=== PATIENT | female | born 1940 | race Caucasian/White ===

== ENCOUNTER → 2016-10-08 | Outpatient (CLI) | payer OTHER ==
[~2016-10-08] MED LIST: ASPCH81X PO; CALCTAB5 PO; CARV6.252 PO; CHOL20007 PO; CYAN500T13 PO; IBUP-1050 PO; LATA0.009 OPB; LIDO5DIS10 TD; METO25TA3 PO; OMEG10007 PO; OMEP40CA PO; POLY335019 PO; SIMV10TA2 PO; TIMO0.2527 OPB; [UNRECOGNIZED DRUG - CODE] TOP
--- NOTE | 2016-10-08 12:58 | MAMMOGRAPHY REPORT ---
BILATERAL DIGITAL SCREENING MAMMOGRAM WITH CAD: 10/08/2016 CLINICAL HISTORY: Routine screening. Patient has no complaints. TECHNIQUE: Current study was also evaluated with a Computer Aided Detection (CAD) system. Bilatera l CC and MLO views were obtained. COMPARISON: Comparison is made to exams dated: 10/08/2015 mammogram, 10/05/2014 mammogram, 09/06/2013 mammogram, 08/16/2012 mammogram, 06/05/2011 mammogram, and 06/04/2010 mammogram - [facility]. BREAST COMPOSITION: There are scattered areas of fibroglandular density in both breasts. FINDINGS: No suspicious masses, calcifications, or areas of architectural distortion are noted in e ither breast. There has been no significant interval change compared to prior exams. Bilateral vitaly gn-appearing calcifications are not significantly changed. IMPRESSION: ACR BI-RADS CATEGORY 2: BENIGN There is no mammographic evidence of malignancy. A 1 year screening mammogram is recommended. The p atient will receive written notification of the results. Approximately 10% of breast cancers are not detected with mammography. A negative mammographic repor t should not delay biopsy if a clinically suggestive mass is present. Lluvia Moody M.D. ah/:10/08/2016 12:02:05 Winter Intern: Orlando BLAKE(R)(M), [facility] letter sent: Normal 1/2 BI-RADS Code: ACR BI-RADS Category 2: Benign
== END | disposition home or self-care (01) ==
LOC: C.MAMM 11:13
PROVIDERS: ATTEND Obstetrics & Gynecology
DX: Z12.31 Encounter for screening mammogram for malignant neoplasm of breast (principal)

== ENCOUNTER → 2016-11-20 | Outpatient (CLI) | payer OTHER ==
[2016-11-20 10:23] LABS: ALT/SGPT 29 U/L (12-78); BLOOD UREA NITROGEN 9 mg/dl (7-18); BUN/CREATININE RATIO 9.3 (10-20); CALCIUM 9.1 mg/dl (8.5-10.1); CARBON DIOXIDE 26 mmol/L (21-32); CHLORIDE 105 mmol/L (98-107); CHOLESTEROL 219 mg/dl (0-200); GLUCOSE 117 mg/dl (70-99); POTASSIUM 4.4 mmol/L (3.5-5.1); SODIUM 137 mmol/L (136-145); TRIGLYCERIDES 117 mg/dl (0-150); URIC ACID 5.6 mg/dl (2.6-7.2); VERY LOW DENSITY LIPOPROT CALC 23 mg/dl
[2016-11-20 10:31] LABS: ALB/GLOB RATIO 0.9 (0.9-2); ALKALINE PHOSPHATASE 57 U/L (45-117); AST/SGOT 17 U/L (15-37); CHOLESTEROL/HDL RATIO 4.7; HDL CHOLESTEROL 47 mg/dl; LDL CHOLESTEROL CALCULATED 149 mg/dl; PHOSPHORUS 2.9 mg/dl (2.5-4.9)
[2016-11-20 10:39] LABS: ESTIMATED AVERAGE GLUCOSE 134 mg/dl; HA1C FLAG Normal (Normal)
[2016-11-20 12:19] LABS: BASO % 0.7 %; BASO ABS # 0.03 K/uL (0-0.2); COMPLETE YES; EOS % 3.7 %; HEMATOCRIT 36.8 % (37-47); IG% 0.2 %; LYMPH % 37.6 %; LYMPH ABS # 1.71 K/uL (1.2-3.4); MEAN CELL VOLUME 91.3 fL (80-100); MEAN CORPUSCULAR HEMOGLOBIN 30.5 pg (25-34); MEAN CORPUSCULAR HGB CONC 33.4 g/dl (32-36); MEAN PLATELET VOLUME 10.6 fL (7.4-10.4); MONO % 10.1 %; NEUT % 47.7 %; PLATELET COUNT 257 K/uL (130-400); RED BLOOD COUNT 4.03 M/uL (4.2-5.4); WHITE BLOOD COUNT 4.55 K/uL (4.8-10.8)
[2016-11-21 12:49] LABS: C-REACTIVE PROT HIGHSEN 1.8 MG/L
== END | disposition home or self-care (01) ==
LOC: C.LAB1850 08:58
PROVIDERS: ATTEND Family Medicine
DX: R73.09 Other abnormal glucose (principal)

== ENCOUNTER → 2017-05-26 | Outpatient (CLI) | payer OTHER ==
[2017-05-26 10:39] LABS: BASO % 0.6 %; BASO ABS # 0.03 K/uL (0-0.2); EOS % 1.7 %; EOS ABS # 0.09 K/uL (0-0.5); HEMATOCRIT 38.1 % (37-47); HEMOGLOBIN 12.9 g/dL (12.0-16.0); IG# 0.01 K/uL (0.00-0.02); LYMPH % 34.5 %; MEAN CELL VOLUME 91.4 fL (80-100); MEAN CORPUSCULAR HEMOGLOBIN 30.9 pg (25-34); MEAN CORPUSCULAR HGB CONC 33.9 g/dl (32-36); MONO % 8.3 %; MONO ABS # 0.43 K/uL (0.11-0.59); NEUT % 54.7 %; NEUT ABS # 2.85 K/uL (1.4-6.5); PLATELET COUNT 250 K/uL (130-400); RED CELL DISTRIBUTION WIDTH CV 13.2 % (11.5-14.5); RED CELL DISTRIBUTION WIDTH SD 43.8 fL (36.4-46.3); WHITE BLOOD COUNT 5.21 K/uL (4.8-10.8)
[2017-05-26 11:33] LABS: HEMOGLOBIN A1C 6.1 % (4.5-5.6)
[2017-05-26 11:36] LABS: ALBUMIN 3.7 gm/dl (3.4-5.0); ALKALINE PHOSPHATASE 60 U/L (45-117); BLOOD UREA NITROGEN 11 mg/dl (7-18); CALCIUM 9.2 mg/dl (8.5-10.1); CARBON DIOXIDE 28 mmol/L (21-32); CHOLESTEROL 210 mg/dl (0-200); CREATININE 0.89 mg/dl (0.60-1.20); GLUCOSE 110 mg/dl (70-99); POTASSIUM 3.9 mmol/L (3.5-5.1); SODIUM 135 mmol/L (136-145); TOTAL PROTEIN 7.6 gm/dl (6.4-8.2)
[2017-05-26 11:46] LABS: ALT/SGPT 34 U/L (12-78); AST/SGOT 18 U/L (15-37); LDL CHOLESTEROL CALCULATED 121 mg/dl; TRANSFERRIN 247 mg/dl (200-360); URIC ACID 6.1 mg/dl (2.6-7.2)
== END | disposition home or self-care (01) ==
LOC: C.LAB1850 09:24
PROVIDERS: ATTEND Family Medicine
DX: R73.09 Other abnormal glucose (principal); E55.9 Vitamin D deficiency, unspecified; D51.9 Vitamin B12 deficiency anemia, unspecified; E78.9 Disorder of lipoprotein metabolism, unspecified; R53.83 Other fatigue

== ENCOUNTER 2023-09-08 19:25 | Observation (INO) ==
[2023-09-08 20:47] LABS: Basophils # (auto) 0.03 K/uL (0.00-0.20); Basophils % (auto) 0.2 %; Eosinophils # (auto) 0.03 K/uL (0.00-0.50); Eosinophils % (auto) 0.2 %; Hematocrit (blood only) 36.2 % (37.0-47.0); Hemoglobin 12.7 g/dl (12.0-16.0); Immature Granulocytes # (auto) 0.06 K/uL (0.01-0.20); Immature Granulocytes % (auto) 0.4 %; Lymphocytes % (auto) 12.9 %; Mean Corpuscular Hemoglobin 30.8 pg (25.0-34.0); Mean Corpuscular Hgb Conc 35.1 g/dL (32.0-36.0); Mean Corpuscular Volume 87.7 fL (80.0-100.0); Mean Platelet Volume 10.3 fL (9.4-12.4); Monocytes # (auto) 1.01 K/uL (0.11-0.59); Monocytes % (auto) 7.2 %; Neutrophils # (auto) 11.05 K/uL (1.40-6.50); Neutrophils % (auto) 79.1 %; Platelet Count 273 K/uL (130-400); RDW Coefficient of Variation 12.7 % (11.5-14.5); Red Blood Count 4.13 M/uL (4.20-5.40); White Blood Count 13.98 K/ul (4.8-10.8)
[2023-09-08 20:55] LABS: Alanine Aminotransferase 15 U/L (7-52); Albumin Globulin Ratio 1.3 (0.9-2); Albumin Level 4.2 gm/dl (3.4-5.0); Alkaline Phosphatase 52 U/L (34-104); Anion Gap 9 (3-11); Aspartate Aminotransferase 20 U/L (13-39); BUN Creatinine Ratio 11.2 (10-20); Bilirubin,Total 0.5 mg/dl (0.2-1.0); Blood Urea Nitrogen 10 mg/dl (6-23); Calcium 8.9 mg/dl (8.6-10.3); Carbon Dioxide 23 mmol/L (21-32); Chloride 93 mmol/L (98-107); Est GFR (African American) 70.4 ml/min; Est GFR (Non-African American) 60.8 ml/min; Globulin 3.2 gm/dl (2.5-4.0); Glucose 171 mg/dl (70-99(Fasting)); Lipase 43 U/L (11-82); Potassium 3.7 mmol/L (3.5-5.1); Sodium 125 mmol/L (136-145); Total Protein 7.4 gm/dl (6.0-8.3)
[2023-09-08] MEDS: SODIUM CHLORIDE 0.9% 1,000 ML IV SCH (23:31)
[2023-09-08] MEDS: SODIUM CHLORIDE 0.9% 250 ML IV ONE (23:31)
--- NOTE | 2023-09-09 01:23 | Emergency Department Note ---
Impression & Plan Colitis, Acute lower gastrointestinal bleeding, Acute hyponatremia ED Provider Note CHIEF COMPLAINT: Bloody stools. HISTORY OF PRESENT ILLNESS: This 83-year-old female patient presents to the emergency department with complaints of abdominal cramping and bloody diarrhea. The patient states she has a history of IBS and had multiple bouts of diarrhea yesterday. She states although the diarrhea has slowed down, the cramping seems to be more intense. She denies any unusual food intake, nobody is ill in the home. Patient is not taking any anticoagulants, but does take aspirin 81 mg daily. She denies any significant fevers. She is not vomiting. REVIEW OF SYSTEMS: A review of systems was performed with positives and pertinent negatives listed in the history of present illness. 10 systems were reviewed and are otherwise negative. ALLERGIES: see below MEDICATIONS: see below PMH: see below SOCIAL HISTORY: see below DDx: This patient was evaluated and appeared to be in no significant distress. IV access was obtained and laboratory work was drawn. Patient was placed on the cafeteria monitor noted to be in normal sinus rhythm. PHYSICAL EXAM: Vital signs reviewed. General: Well-appearing 83-year-old male, in no significant distress. HEENT: No scleral icterus, PERRLA, neck supple. Dry mucous membranes. Cardiovascular: Regular rate and rhythm, no extra sounds. Pulmonary: Clear to auscultation bilaterally, normal work of breathing. Abdomen: Soft, mild diffuse abdominal tenderness, most significant in the LLQ, nondistended, positive bowel sounds. Musculoskeletal: Atraumatic, no peripheral edema. Neurologic: Patient awake alert and oriented x 3, speech is clear Skin: Warm, dry, no rash EMERGENCY DEPARTMENT COURSE/MDM: This patient was evaluated and appeared to be in no significant distress. IV access was obtained and laboratory work was drawn. The patient was placed on the cafeteria monitor noted to be in normal sinus rhythm. Patient was hydrated with normal saline solution. Laboratory work reveals an elevated WBC at 13.98, hemoglobin of 12.7 and low sodium at 125. CT imaging of the abdomen pelvis was ordered and reveals no evidence of bowel obstruction however there is thickening of the mucosa at the splenic flexure and descending colon, suspicious for inflammatory infectious colitis. Stool bio fire panel is negative, C. difficile is negative. The patient was given IV Zosyn after discussion with the hospitalist, Dr. Chambers. She will evaluate the patient for admission and further management. MONITORING: An order for cardiac monitoring was placed and the patient is noted to be in a normal sinus rhythm at 76 bpm. RADIOLOGY: IMPRESSION: No evidence for bowel obstruction. Marked concentric mucosal thickening involving the splenic flexure and descending colon with pericolonic fat stranding. Findings are most consistent with inflammatory infectious colitis. No pneumatosis or pneumoperitoneum. EKG: To my interpretation reveals a normal sinus rhythm at 63 bpm. Right bundle branch block, left posterior fascicular block. QTc is 476. When compared to previous dated 09/28/2020, bifascicular block is new. DISPOSITION:Admit Past Med/Surg History Medical History Uterine prolapse GERD (gastroesophageal reflux disease) Focal active colitis Chronic diarrhea Epigastric abdominal pain Glaucoma Arthritis IN BACK Acid reflux Hypothyroidism Herpes simplex Inflamed seborrheic keratosis Surgical History History of thumb surgery (~2015) right History of esophagogastroduodenoscopy (EGD) (~2010) History of bilateral cataract extraction History of colonoscopy History of urologic surgery BLADDER TAC X3 History of hysterectomy History of back surgery FOR COMPRESSION FX H/O: hysterectomy Family History Brother Hypertension Sister Myocardial infarction Diabetes Anxiety Mother Family history of stroke Myocardial infarction Hypertension Diabetes Gallbladder disease Father Family history of lung cancer Myocardial infarction Sister Family history of kidney cancer Breast cancer Sister Family history of reaction to anesthesia difficulty waking Other Family history of glaucoma Heart disease No family history of bleeding disorder Denies family history of Ovarian cancer Prostate cancer Colorectal cancer Social History Smoking Status: Never smoker Tobacco Type: Cigarettes Age Started Using Tobacco: 22; Age Quit Using Tobacco: 22; Cigarettes Per Day: socially/a few months; Second Hand Exposure: No; Do You Dip or Chew Tobacco: No; Hx Alcohol Use: No Hx Substance Use: No Preferred Language: Occitan Communication Ability: Effective Visual Impairment: Limited Hearing Ability: Use of Hearing Aid Melter Clerk Required: No Beliefs That Will Affect Care: None marital status: Current Living Situation: Spouse current occupational status: retired How many Children do You have: 4 Feels Safe at Home: Yes Childhood Exposure to Second-Hand Smoke: No Diet: regular caffeine: Yes Dental Care, Regularly: No Physical Activity Frequency: Does not Exercise Seatbelt Use: always Sunscreen Use: Yes Do you think of yourself as: straight/heterosexual Assistive Devices: None Allergies Allergies Allergy/AdvReac Type Severity Reaction Status Date / Time morphine AdvReac Intermediate GI SYMPTOMS Verified 09/08/23 22:35 codeine AdvReac Mild NAUSEATED Verified 09/08/23 22:35 oxycodone AdvReac Mild NAUSEA Verified 09/08/23 22:35 Home Meds Home Medications Medication Instructions Recorded Confirmed timolol maleate 0.5 % once daily 1 drp OPB BID 12/09/18 09/08/23 eye drops latanoprost 0.005 % eye drops 1 drp OPB HS 12/29/18 09/08/23 cyanocobalamin (vitamin B-12) 1,000 mcg PO QAM 01/05/19 09/08/23 1,000 mcg tablet (Vitamin B-12) coenzyme Q10 100 mg capsule (Co 100 mg PO QAM 03/23/20 09/08/23 Q-10) garlic 1,000 mg capsule 1,000 mg PO DAILY 01/02/22 09/08/23 metronidazole 500 mg tablet 500 mg PO TID PRN IBS FLARE UPS 01/06/23 09/08/23 aspirin 81 mg tablet,delayed 81 mg PO HS 09/08/23 09/08/23 release cholecalciferol (vitamin D3) 125 125 mcg PO 2XWK 09/08/23 09/08/23 mcg (5,000 unit) tablet (Vitamin D3) mometasone 0.1 % topical solution See Rx Instructions .Route 09/08/23 09/08/23 .COMPLEX PRN ITCHY EARS omeprazole 40 mg capsule,delayed 40 mg PO DAILY Acid Reflux 09/08/23 09/08/23 release Previous Rx's Medication Instructions Recorded amlodipine 2.5 mg tablet 2.5 mg PO DAILY #90 tabs 11/05/22 simvastatin 10 mg tablet 10 mg PO HS #90 tabs 11/11/22 dicyclomine 10 mg capsule 10 mg PO TID IBS 90 days #270 caps 12/30/22 carvedilol 25 mg tablet 25 mg PO BID #180 tabs 03/30/23 Results & Data (ED) Vital Signs Vital Signs - 24 hr 09/08/23 19:32 09/08/23 21:39 09/08/23 22:23 Temperature 36.7 C Temperature Source Temporal Artery Scan Pulse Rate 88 Pulse Rate [Finger] 60 Pulse Rate [Left Apical] 66 Pulse Rhythm [Left Apical] Pulse Strength [Left Apical] Respiratory Rate 18 17 19 Respiratory Effort / Characteristics Non-Labored Spontaneous Non-Labored Respiratory Depth Normal Normal Respiratory Pattern Regular Blood Pressure 108/56 L Blood Pressure [Right Arm] 112/73 139/74 Blood Pressure Mean 73 Blood Pressure Mean [Right Arm] 86 95 Blood Pressure Position [Right Arm] Semi-fowlers Pulse Oximetry 97 97 97 Oxygen Delivery Method Room Air Room Air Room Air Sepsis Recent Fever Within 48 Hours No Sepsis New/Unexplained Change in Mental Status N/A Sepsis Action Taken by Nursing No Action Required 09/08/23 22:32 09/08/23 22:33 09/08/23 23:00 Temperature Temperature Source Pulse Rate 69 69 67 Pulse Rate [Finger] Pulse Rate [Left Apical] Pulse Rhythm [Left Apical] Pulse Strength [Left Apical] Respiratory Rate 16 19 Respiratory Effort / Characteristics Respiratory Depth Respiratory Pattern Blood Pressure 141/71 H 142/79 H Blood Pressure [Right Arm] Blood Pressure Mean 84 100 Blood Pressure Mean [Right Arm] Blood Pressure Position [Right Arm] Pulse Oximetry 97 93 Oxygen Delivery Method Room Air Room Air Sepsis Recent Fever Within 48 Hours Sepsis New/Unexplained Change in Mental Status Sepsis Action Taken by Nursing 09/09/23 00:00 Temperature Temperature Source Pulse Rate Pulse Rate [Finger] Pulse Rate [Left Apical] 77 Pulse Rhythm [Left Apical] Regular Pulse Strength [Left Apical] Normal Respiratory Rate 18 Respiratory Effort / Characteristics Non-Labored Spontaneous Respiratory Depth Normal Respiratory Pattern Regular Blood Pressure Blood Pressure [Right Arm] 144/75 H Blood Pressure Mean Blood Pressure Mean [Right Arm] 98 Blood Pressure Position [Right Arm] Lying Pulse Oximetry 93 Oxygen Delivery Method Room Air Sepsis Recent Fever Within 48 Hours Sepsis New/Unexplained Change in Mental Status Sepsis Action Taken by Residential Medications Current Medication List: was personally reviewed by me Laboratory Data Attestation: I reviewed the patient's lab results. 09/10/23 06:28 09/10/23 06:28 Lab Results 09/08/23 Range/Units 20:10 WBC 13.98 H (4.8-10.8) K/ul RBC 4.13 L (4.20-5.40) M/uL Hgb 12.7 (12.0-16.0) g/dl Hct 36.2 L (37.0-47.0) % MCV 87.7 (80.0-100.0) fL MCH 30.8 (25.0-34.0) pg MCHC 35.1 (32.0-36.0) g/dL RDW Std Deviation 41.0 (36.4-46.3) fL RDW Coeff of Dorothy 12.7 (11.5-14.5) % Plt Count 273 (130-400) K/uL MPV 10.3 (9.4-12.4) fL Immature Gran % (Auto) 0.4 % Neut % (Auto) 79.1 % Lymph % (Auto) 12.9 % [place] % (Auto) 7.2 % Eos % (Auto) 0.2 % Baso % (Auto) 0.2 % Neut # (Auto) 11.05 H (1.40-6.50) K/uL Lymph # (Auto) 1.80 (1.20-3.40) K/uL [place] # (Auto) 1.01 H (0.11-0.59) K/uL Eos # (Auto) 0.03 (0.00-0.50) K/uL Baso # (Auto) 0.03 (0.00-0.20) K/uL Immature Gran # (Auto) 0.06 (0.01-0.20) K/uL Sodium 125 L (136-145) mmol/L Potassium 3.7 (3.5-5.1) mmol/L Chloride 93 L (98-107) mmol/L Carbon Dioxide 23 (21-32) mmol/L Anion Gap 9 (3-11) BUN 10 (6-23) mg/dl Creatinine 0.89 (0.6-1.2) mg/dl Est Cr Clr Drug Dosing Not Reportable Est GFR ( Amer) 70.4 ml/min Est GFR (Non-Af Amer) 60.8 ml/min BUN/Creatinine Ratio 11.2 (10-20) Glucose 171 H (70-99(Fasting)) mg/dl Osmolality 267 L (280-300) mOsm/kg Calcium 8.9 (8.6-10.3) mg/dl Total Bilirubin 0.5 (0.2-1.0) mg/dl AST 20 (13-39) U/L ALT 15 (7-52) U/L Alkaline Phosphatase 52 (34-104) U/L Total Protein 7.4 (6.0-8.3) gm/dl Albumin 4.2 (3.4-5.0) gm/dl Globulin 3.2 (2.5-4.0) gm/dl Albumin/Globulin Ratio 1.3 (0.9-2) Lipase 43 (11-82) U/L Administered Medications Discontinued Medications Amlodipine Besylate (Amlodipine Besylate 5 Mg Tab) 2.5 mg PO DAILY LYNETTE Stop: 10/09/23 08:59 Last Admin: 09/10/23 07:52 Dose: 2.5 mg Documented By: Admin: 09/09/23 09:01 Dose: 2.5 mg Documented By: FLACA Carvedilol (Carvedilol 25 Mg Tab) 25 mg PO BID LYNETTE Stop: 10/09/23 08:59 Last Admin: 09/10/23 07:56 Dose: 25 mg Documented By: Admin: 09/09/23 21:05 Dose: 25 mg Documented By: Admin: 09/09/23 09:02 Dose: 25 mg Documented By: FLACA Dicyclomine HCl (Dicyclomine Hcl 10 Mg Cap) 10 mg PO TID LYNETTE Stop: 10/09/23 08:59 Last Admin: 09/10/23 07:55 Dose: 10 mg Documented By: Admin: 09/09/23 21:05 Dose: 10 mg Documented By: Admin: 09/09/23 13:46 Dose: 10 mg Documented By: Admin: 09/09/23 09:02 Dose: 10 mg Documented By: FLACA Sodium Chloride (Nss) 250 mls @ 999 mls/hr IV .Q16M ONE Stop: 09/08/23 23:21 Last Infusion: 09/08/23 23:49 Dose: Infused Documented By: Admin: 09/08/23 23:31 Dose: 999 mls/hr Documented By: MIR Sodium Chloride (Nss) 1,000 mls @ 125 mls/hr IV .Q8H LYNETTE Stop: 10/08/23 23:14 Last Infusion: 09/09/23 03:57 Dose: Infused Documented By: Admin: 09/08/23 23:31 Dose: 125 mls/hr Documented By: MIR Piperacillin Sod/Tazobactam Sod (Zosyn) 4.5 gm in 100 mls @ 200 mls/hr IV NOW ONE Stop: 09/09/23 02:54 Last Admin: 09/09/23 03:52 Dose: Not Given Documented By: MIR Metronidazole (Flagyl) 500 mg in 100 mls @ 100 mls/hr IV Q8H [facility]; Protocol Stop: 09/19/23 08:59 Last Infusion: 09/10/23 09:04 Dose: Infused Documented By: Admin: 09/10/23 07:52 Dose: 100 mls/hr Documented By: Infusion: 09/10/23 01:26 Dose: Infused Documented By: Admin: 09/10/23 00:22 Dose: 100 mls/hr Documented By: Infusion: 09/09/23 18:51 Dose: Infused Documented By: Admin: 09/09/23 17:45 Dose: 100 mls/hr Documented By: Infusion: 09/09/23 10:32 Dose: Infused Documented By: Admin: 09/09/23 09:00 Dose: 100 mls/hr Documented By: FLACA Lactated Ringer's (Lr) 1,000 mls @ 100 mls/hr IV .Q10H LYNETTE Stop: 09/09/23 13:17 Last Infusion: 09/09/23 15:01 Dose: Infused Documented By: Admin: 09/09/23 04:01 Dose: 100 mls/hr Documented By: MIR Ioversol (Optiray 320 100ml) 100 ml IV ONCE ONE Stop: 09/09/23 02:33 Last Admin: 09/09/23 02:32 Dose: 90 ml Documented By: VALENTIN Latanoprost (Latanoprost 0.005% Op Soln 2.5 Ml Btl) 1 drops OPB HS LYNETTE Stop: 10/09/23 20:59 Last Admin: 09/09/23 21:06 Dose: 1 drops Documented By: MARTINEZ Pantoprazole Sodium (Pantoprazole 40 Mg Tab) 40 mg PO DAILY LYNETTE Stop: 10/09/23 08:59 Last Admin: 09/10/23 07:54 Dose: 40 mg Documented By: Admin: 09/09/23 09:02 Dose: 40 mg Documented By: FLACA Potassium Chloride (Potassium Chloride Crtab 20 Meq Tabcr) 20 meq PO NOW STA Stop: 09/10/23 08:05 Last Admin: 09/10/23 09:04 Dose: 20 meq Documented By: SINDY Simvastatin (Simvastatin 10 Mg Tab) 10 mg PO HS LYNETTE Stop: 10/09/23 20:59 Last Admin: 09/09/23 21:06 Dose: 10 mg Documented By: MARTINEZ Timolol Maleate (Timolol Maleate 0.5% Op Soln 5 Ml Btl) 1 drops OPB BID LYNETTE Stop: 10/09/23 08:59 Last Admin: 09/10/23 07:55 Dose: 1 drops Documented By: Admin: 09/09/23 21:12 Dose: 1 drops Documented By: Admin: 09/09/23 09:01 Dose: 1 drops Documented By: FLACA Discharge Plan Visit Data Chief Complaint: Diarrhea Stated Complaint: BLOODY STOOL, WEAKNESS, VOMITING/POOR APPETITE ED Provider: Demetrice Michelle Discharge Problem: Colitis, Acute lower gastrointestinal bleeding, Acute hyponatremia Patient Disposition: Admitted As Inpatient Discharge Instructions Interventions: ED Discharge Assessment Last Done: 09/09/23 03:18
[2023-09-09] MEDS: OPTIRAY 320 100ml IV ONE (02:32)
--- NOTE | 2023-09-09 02:38 | History & Physical Report ---
Date of Service September 09, 2023 Assessment & Plan (1) Colitis: Plan: Infectious versus inflammatory. Patient reports 1 day of loose stools with blood. She has not had passage of stool or bleeding now for almost 24 hours. She is hemodynamically stable and nontoxic in appearance. Hemoglobin/hematocrit, renal function are acceptable Admit to medical telemetry Maintain 2 peripheral IVs Check C. difficile, stool BioFire IV fluids with LR at 100 mL/h x 1 L Continue metronidazolewill transition to IV 500 mg every 8 hours Continue dicyclomine Zofran as needed (2) Hypertension: Plan: Chronic. Mildly elevated Continue carvedilol Continue amlodipine (3) Hyperlipidemia: Plan: Chronic. Stable. Continue simvastatin History of Present Illness Chief Complaint: Bloody diarrhea Primary Care Provider: Nilay Estrella MD Lyudmila Arriola is a pleasant 83-year-old female with history of irritable bowel longstanding greater than 20 years presenting with abdominal pain and bloody diarrhea. Patient reports crampy lower abdominal pain as well as multiple episodes of bloody loose stools. Her symptoms lasted approximately 1 day and 1 night. Her last bowel movement was yesterday morning she has had no further bleeding since yesterday. She was taking dicyclomine as well as Flagyl at home as directed by her PCP for IBS flare Patient denies travel, sick contacts, recent hospitalization or antibiotic use She denies fever, chills, nausea, vomiting, chest pain, cough, shortness of breath. She has had decreased appetite and poor oral intake for the last several days. Allergies Allergy/AdvReac Type Severity Reaction Status Date / Time morphine AdvReac Intermediate GI SYMPTOMS Verified 09/08/23 22:35 codeine AdvReac Mild NAUSEATED Verified 09/08/23 22:35 oxycodone AdvReac Mild NAUSEA Verified 09/08/23 22:35 Home Medications Medication Instructions Recorded Confirmed Type timolol maleate 0.5 % once daily 1 drp OPB BID 12/09/18 09/08/23 History eye drops latanoprost 0.005 % eye drops 1 drp OPB HS 12/29/18 09/08/23 History cyanocobalamin (vitamin B-12) 1,000 mcg PO QAM 01/05/19 09/08/23 History 1,000 mcg tablet (Vitamin B-12) coenzyme Q10 100 mg capsule (Co 100 mg PO QAM 03/23/20 09/08/23 History Q-10) garlic 1,000 mg capsule 1,000 mg PO DAILY 01/02/22 09/08/23 History amlodipine 2.5 mg tablet 2.5 mg PO DAILY #90 tabs 11/05/22 09/08/23 Rx simvastatin 10 mg tablet 10 mg PO HS #90 tabs 11/11/22 09/08/23 Rx dicyclomine 10 mg capsule 10 mg PO TID IBS 90 days #270 caps 12/30/22 09/08/23 Rx metronidazole 500 mg tablet 500 mg PO TID PRN IBS FLARE UPS 01/06/23 09/08/23 History carvedilol 25 mg tablet 25 mg PO BID #180 tabs 03/30/23 09/08/23 Rx aspirin 81 mg tablet,delayed 81 mg PO HS 09/08/23 09/08/23 History release cholecalciferol (vitamin D3) 125 125 mcg PO 2XWK 09/08/23 09/08/23 History mcg (5,000 unit) tablet (Vitamin D3) mometasone 0.1 % topical solution See Rx Instructions .Route 09/08/23 09/08/23 History .COMPLEX PRN ITCHY EARS omeprazole 40 mg capsule,delayed 40 mg PO DAILY Acid Reflux 09/08/23 09/08/23 History release Past Med/Surg History Medical History Uterine prolapse GERD (gastroesophageal reflux disease) Focal active colitis Chronic diarrhea Epigastric abdominal pain Glaucoma Arthritis IN BACK Acid reflux Hypothyroidism Herpes simplex Inflamed seborrheic keratosis Surgical History History of thumb surgery (~2015) right History of esophagogastroduodenoscopy (EGD) (~2010) History of bilateral cataract extraction History of colonoscopy History of urologic surgery BLADDER TAC X3 History of hysterectomy History of back surgery FOR COMPRESSION FX H/O: hysterectomy Family History Brother Hypertension Sister Myocardial infarction Diabetes Anxiety Mother Family history of stroke Myocardial infarction Hypertension Diabetes Gallbladder disease Father Family history of lung cancer Myocardial infarction Sister Family history of kidney cancer Breast cancer Sister Family history of reaction to anesthesia difficulty waking Other Family history of glaucoma Heart disease No family history of bleeding disorder Denies family history of Ovarian cancer Prostate cancer Colorectal cancer Social History Smoking Status: Never smoker Tobacco Type: Cigarettes Age Started Using Tobacco: 22; Age Quit Using Tobacco: 22; Cigarettes Per Day: socially/a few months; Second Hand Exposure: No; Do You Dip or Chew Tobacco: No; Hx Alcohol Use: Yes Alcohol type: beer Alcohol Intake Frequency: 2-4 x/Month Hx Substance Use: No Preferred Language: [place] Communication Ability: Effective Visual Impairment: Limited Hearing Ability: Use of Hearing Aid Hip Hop Artist Required: No Beliefs That Will Affect Care: Anabaptist Anabaptist Beliefs: TAOIST marital status: Current Living Situation: Spouse current occupational status: retired How many Children do You have: 4 Feels Safe at Home: Yes Childhood Exposure to Second-Hand Smoke: No Diet: regular caffeine: Yes Dental Care, Regularly: No Physical Activity Frequency: Does not Exercise Seatbelt Use: always Sunscreen Use: Yes Do you think of yourself as: straight/heterosexual Assistive Devices: Denture - Upper, Glasses and Hearing Aid - Bilateral Review of Systems Review of Systems: All systems reviewed & are unremarkable except as noted in HPI & below Physical Exam Physical Exam: General: patient resting comfortably, NAD, non-toxic in appearance, AA&O x 4 Skin: warm, dry, intact, no rashes or lesions HEENT: NC/AT, PERRL, EOMI, anicteric sclera, conjunctiva without injection, external ear normal to inspection and nontender, nares patent, moist mucus m embranes, dentition intact, no oropharyngeal lesions, neck supple, trachea midline, no LAD, no thyromegaly, no JVD Heart: +S1/S2, regular, no m/r/g Lungs: equal air entry bilaterally, no rales/rhonchi/wheezes Abd: +BS, soft, NT/ND, no masses/organomegaly/ascites Ext: warm, 2+ pulses in UE/LE bilaterally, no clubbing/cyanosis or edema Neuro: nonfocal, patient AA&O x 4, speech intact, no facial droop, moving all extremities on command with equal strength 5/5 Results & Data Results & Data Vital Signs (Past 12 Hours) Vital Signs Temp Pulse Pulse Pulse Resp BP BP 09/09/23 02:00 74 18 154/78 H 09/09/23 00:00 77 18 144/75 H 09/08/23 23:00 67 19 142/79 H 09/08/23 22:33 69 09/08/23 22:32 69 16 141/71 H 09/08/23 22:23 66 19 139/74 09/08/23 21:39 60 17 112/73 09/08/23 19:32 36.7 C 88 18 108/56 L Pulse Ox O2 Del Method 09/09/23 02:00 98 Room Air 09/09/23 00:00 93 Room Air 09/08/23 23:00 93 Room Air 09/08/23 22:33 09/08/23 22:32 97 Room Air 09/08/23 22:23 97 Room Air 09/08/23 21:39 97 Room Air 09/08/23 19:32 97 Room Air Laboratory Results Laboratory Results WBC 13.98 K/ul (4.8-10.8) H 09/08/23 20:10 RBC 4.13 M/uL (4.20-5.40) L 09/08/23 20:10 Hgb 12.7 g/dl (12.0-16.0) 09/08/23 20:10 Hct 36.2 % (37.0-47.0) L 09/08/23 20:10 MCV 87.7 fL (80.0-100.0) 09/08/23 20:10 MCH 30.8 pg (25.0-34.0) 09/08/23 20:10 MCHC 35.1 g/dL (32.0-36.0) 09/08/23 20:10 RDW Std Deviation 41.0 fL (36.4-46.3) 09/08/23 20:10 RDW Coeff of Dorothy 12.7 % (11.5-14.5) 09/08/23 20:10 Plt Count 273 K/uL (130-400) 09/08/23 20:10 MPV 10.3 fL (9.4-12.4) 09/08/23 20:10 Immature Gran % (Auto) 0.4 % 09/08/23 20:10 Neut % (Auto) 79.1 % 09/08/23 20:10 Lymph % (Auto) 12.9 % 09/08/23 20:10 [place] % (Auto) 7.2 % 09/08/23 20:10 Eos % (Auto) 0.2 % 09/08/23 20:10 Baso % (Auto) 0.2 % 09/08/23 20:10 Neut # (Auto) 11.05 K/uL (1.40-6.50) H 09/08/23 20:10 Lymph # (Auto) 1.80 K/uL (1.20-3.40) 09/08/23 20:10 [place] # (Auto) 1.01 K/uL (0.11-0.59) H 09/08/23 20:10 Eos # (Auto) 0.03 K/uL (0.00-0.50) 09/08/23 20:10 Baso # (Auto) 0.03 K/uL (0.00-0.20) 09/08/23 20:10 Immature Gran # (Auto) 0.06 K/uL (0.01-0.20) 09/08/23 20:10 Sodium 125 mmol/L (136-145) L 09/08/23 20:10 Potassium 3.7 mmol/L (3.5-5.1) 09/08/23 20:10 Chloride 93 mmol/L (98-107) L 09/08/23 20:10 Carbon Dioxide 23 mmol/L (21-32) 09/08/23 20:10 Anion Gap 9 (3-11) 09/08/23 20:10 BUN 10 mg/dl (6-23) 09/08/23 20:10 Creatinine 0.89 mg/dl (0.6-1.2) 09/08/23 20:10 Est Cr Clr Drug Dosing Not Reportable 09/08/23 20:10 Est GFR ( Amer) 70.4 ml/min 09/08/23 20:10 Est GFR (Non-Af Amer) 60.8 ml/min 09/08/23 20:10 BUN/Creatinine Ratio 11.2 (10-20) 09/08/23 20:10 Glucose 171 mg/dl (70-99(Fasting)) H 09/08/23 20:10 Osmolality 267 mOsm/kg (280-300) L 09/08/23 20:10 Calcium 8.9 mg/dl (8.6-10.3) 09/08/23 20:10 Total Bilirubin 0.5 mg/dl (0.2-1.0) 09/08/23 20:10 AST 20 U/L (13-39) 09/08/23 20:10 ALT 15 U/L (7-52) 09/08/23 20:10 Alkaline Phosphatase 52 U/L (34-104) 09/08/23 20:10 Total Protein 7.4 gm/dl (6.0-8.3) 09/08/23 20:10 Albumin 4.2 gm/dl (3.4-5.0) 09/08/23 20:10 Globulin 3.2 gm/dl (2.5-4.0) 09/08/23 20:10 Albumin/Globulin Ratio 1.3 (0.9-2) 09/08/23 20:10 Lipase 43 U/L (11-82) 09/08/23 20:10 Impressions Abdomen/Pelvis CT 09/09/23 02:15 Exam(s): CT ABDOMEN + PELVIS With Contrast IV Amt: 90 ML OPTIRAY 320 EXAM: CT Abdomen and Pelvis With Intravenous Contrast CLINICAL HISTORY: Lower GI Bleed, diarrhea. TECHNIQUE: Axial computed tomography images of the abdomen and pelvis with intravenous contrast. CTDI is 16.75 mGy and DLP is 800.3 mGy-cm. Automated exposure control was utilized for the study. A dose lowering technique was utilized adhering to the principles of ALARA. CONTRAST: Patient received 90 ML OPTIRAY 320 of IV contrast COMPARISON: CT abdomen and pelvis with contrast dated 09/28/2020 FINDINGS: Limitations: There is respiratory artifact, which degrades image quality throughout the examination. Lung bases: Unremarkable. No mass. No consolidation. ABDOMEN: Liver: Unremarkable. No mass. Gallbladder and bile ducts: Unremarkable. No calcified stones. No ductal dilation. Pancreas: Unremarkable. No mass. No ductal dilation. Spleen: Unremarkable. No splenomegaly. Adrenals: Unremarkable. No mass. Kidneys and ureters: The kidneys demonstrate normal enhancement. No pyelonephritis. Bilateral pelviectasis with proximal to mid ureteral distention. No definite ureteral stones. No hydronephrosis. Stomach and bowel: No evidence for bowel obstruction. Marked concentric mucosal thickening involving the splenic flexure and descending colon with pericolonic fat stranding. Scatter diverticulosis of the sigmoid colon without diverticulitis. PELVIS: Appendix: No findings to suggest acute appendicitis. Bladder: Unremarkable. No mass. Reproductive: Status post hysterectomy. ABDOMEN and PELVIS: Intraperitoneal space: Unremarkable. No free air. No significant fluid collection. Bones/joints: Stable post vertebroplasty/kyphoplasty changes at L4 level. No acute osseous abnormality with multilevel degenerative changes. No dislocation. Soft tissues: Unremarkable. Vasculature: The aorta demonstrates atherosclerotic calcification without dissection or aneurysm. The celiac artery and superior mesenteric arteries are grossly patent. The SHELDON is patent proximally. Lymph nodes: Unremarkable. No enlarged lymph nodes. IMPRESSION: No evidence for bowel obstruction. Marked concentric mucosal thickening involving the splenic flexure and descending colon with pericolonic fat stranding. Findings are most consistent with inflammatory infectious colitis. No pneumatosis or pneumoperitoneum. Electronically signed by: Jasvir Hussein MD 09/09/23 03:27 AM PG Care Time/CCT Total # of Minutes Spent Total Time Spent with Patient: Total time spent is greater than 50% in coordination of care (as documented) at patient's floor/unit and/or counseling patient: Coding Level of Care Code 35622 INT INP/OBS CARE 3/75MIN Diagnoses Colitis K52.9 Hypertension I10 Hyperlipidemia E78.5
[2023-09-09] MEDS ORDERED: ONDANSETRON INJ 2 MG/ML 2 ML VIAL IV PRN (03:18)
[2023-09-09] MEDS ORDERED: ACETAMINOPHEN 325 MG TAB PO PRN (03:18)
--- NOTE | 2023-09-09 03:29 | CT Scan Report ---
Exam(s): CT ABDOMEN + PELVIS With Contrast IV Amt: 90 ML OPTIRAY 320 EXAM: CT Abdomen and Pelvis With Intravenous Contrast CLINICAL HISTORY: Lower GI Bleed, diarrhea. TECHNIQUE: Axial computed tomography images of the abdomen and pelvis with intravenous contrast. CTDI is 16.75 mGy and DLP is 800.3 mGy-cm. Automated exposure control was utilized for the study. A dose lowering technique was utilized adhering to the principles of ALARA. CONTRAST: Patient received 90 ML OPTIRAY 320 of IV contrast COMPARISON: CT abdomen and pelvis with contrast dated 09/28/2020 FINDINGS: Limitations: There is respiratory artifact, which degrades image quality throughout the examination. Lung bases: Unremarkable. No mass. No consolidation. ABDOMEN: Liver: Unremarkable. No mass. Gallbladder and bile ducts: Unremarkable. No calcified stones. No ductal dilation. Pancreas: Unremarkable. No mass. No ductal dilation. Spleen: Unremarkable. No splenomegaly. Adrenals: Unremarkable. No mass. Kidneys and ureters: The kidneys demonstrate normal enhancement. No pyelonephritis. Bilateral pelviectasis with proximal to mid ureteral distention. No definite ureteral stones. No hydronephrosis. Stomach and bowel: No evidence for bowel obstruction. Marked concentric mucosal thickening involving the splenic flexure and descending colon with pericolonic fat stranding. Scatter diverticulosis of the sigmoid colon without diverticulitis. PELVIS: Appendix: No findings to suggest acute appendicitis. Bladder: Unremarkable. No mass. Reproductive: Status post hysterectomy. ABDOMEN and PELVIS: Intraperitoneal space: Unremarkable. No free air. No significant fluid collection. Bones/joints: Stable post vertebroplasty/kyphoplasty changes at L4 level. No acute osseous abnormality with multilevel degenerative changes. No dislocation. Soft tissues: Unremarkable. Vasculature: The aorta demonstrates atherosclerotic calcification without dissection or aneurysm. The celiac artery and superior mesenteric arteries are grossly patent. The SHELDON is patent proximally. Lymph nodes: Unremarkable. No enlarged lymph nodes. IMPRESSION: No evidence for bowel obstruction. Marked concentric mucosal thickening involving the splenic flexure and descending colon with pericolonic fat stranding. Findings are most consistent with inflammatory infectious colitis. No pneumatosis or pneumoperitoneum. Electronically signed by: Jasvir Hussein MD 09/09/23 03:27 AM
[2023-09-09] MEDS: PIPERACILLIN/TAZOBACTAM 4.5 GM/100 ML BAG IV ONE (03:52)
[2023-09-09] MEDS: LACTATED RINGER'S 1,000 ML IV SCH (04:01)
[2023-09-09 04:42] LABS: Appearance Urine Clear (Clear); Bacteria Urine Automated None Seen (None Seen); Bilirubin Urine Negative (Negative); Blood Urine Negative (Negative); Color Urine Yellow; Epithelial Cell Urine Auto 0-2 /hpf (0-2); Glucose Urine UA Negative (Negative); Ketones Urine 1+ (Negative); Leukocyte Esterase Urine Trace (Negative); Nitrite Urine Negative (Negative); Protein Urine Trace (Negative); RBC Urine Automated 0-2 /hpf (0-2); Specific Gravity Urine 1.013 (1.000-1.030); Urobilinogen Urine Negative (Negative); pH Urine 6.5 (4.5-7.5)
[2023-09-09] MEDS: metroNIDAZOLE 500 MG/100 ML BAG IV SCH (09:00)
[2023-09-09] MEDS: TIMOLOL MALEATE 0.5% OP SOLN 5 ML BTL OPB SCH (09:01)
[2023-09-09] MEDS: amLODIPine BESYLATE 5 MG TAB PO SCH (09:01)
[2023-09-09] MEDS: PANTOprazole 40 MG TAB PO SCH (09:02)
[2023-09-09] MEDS: carvediloL 25 MG TAB PO SCH (09:02)
[2023-09-09] MEDS: DICYCLOMINE HCL 10 MG CAP PO SCH (09:02)
[2023-09-09 11:24] LABS: Anion Gap 10 (3-11); BUN Creatinine Ratio 9.7 (10-20); Blood Urea Nitrogen 7 mg/dl (6-23); Calcium 8.3 mg/dl (8.6-10.3); Carbon Dioxide 19 mmol/L (21-32); Chloride 102 mmol/L (98-107); Est GFR (Non-African American) 78.5 ml/min; Glucose 168 mg/dl (70-99(Fasting)); Potassium 3.5 mmol/L (3.5-5.1); Sodium 131 mmol/L (136-145)
[2023-09-09 11:40] LABS: Hematocrit (blood only) 31.8 % (37.0-47.0); Hemoglobin 10.9 g/dl (12.0-16.0); Mean Corpuscular Hemoglobin 30.8 pg (25.0-34.0); Mean Corpuscular Hgb Conc 34.3 g/dL (32.0-36.0); Mean Corpuscular Volume 89.8 fL (80.0-100.0); Mean Platelet Volume 9.9 fL (9.4-12.4); Platelet Count 214 K/uL (130-400); RDW Coefficient of Variation 13.1 % (11.5-14.5); RDW Standard Deviation 42.8 fL (36.4-46.3); Red Blood Count 3.54 M/uL (4.20-5.40)
[2023-09-09 12:12] LABS: Adenovirus F 40/41 PCR Not Detected (NotDetected); Astrovirus PCR Not Detected (NotDetected); Campylobacter PCR Not Detected (NotDetected); Cryptosporidium PCR Not Detected (NotDetected); Cyclospora cayetanensis PCR Not Detected (NotDetected); Entamoeba histolytica PCR Not Detected (NotDetected); Enteroaggregative E.coli(EAEC) Not Detected (NotDetected); Enteropathogenic E.coli (EPEC) Not Detected (NotDetected); Enterotoxigenic E.coli (ETEC) Not Detected (NotDetected); Giardia lamblia PCR Not Detected (NotDetected); Norovirus GI/GII PCR Not Detected (NotDetected); Plesiomonas shigelloides PCR Not Detected (NotDetected); Rotavirus A PCR Not Detected (NotDetected); Salmonella PCR Not Detected (NotDetected); Sapovirus PCR Not Detected (NotDetected); Shiga-like Toxin E.coli (STEC) Not Detected (NotDetected); Shigella/Enteroinvasive E.coli Not Detected (NotDetected); Vibrio cholerae PCR Not Detected (NotDetected); Vibrio species PCR Not Detected (NotDetected); Yersinia enterocolitica PCR Not Detected (NotDetected)
--- NOTE | 2023-09-09 16:17 | Electrocardiogram Report ---
Test Reason : Blood Pressure : / mmHG Vent. Rate : 063 BPM Atrial Rate : 063 BPM P-R Int : 128 ms QRS Dur : 120 ms QT Int : 466 ms P-R-T Axes : 007 119 052 degrees QTc Int : 476 ms Normal sinus rhythm Right bundle branch block Left posterior fascicular block Bifascicular block Abnormal ECG When compared with ECG of 28-SEP-2020 14:44, (RBBB and left posterior fascicular block) is now Present Confirmed by Joaquim Cervantes ([id number]) on 09/09/2023 4:16:57 PM Referred By: Yolande Chambers Confirmed By:Joaquim Cervantes
--- NOTE | 2023-09-09 18:45 | Hospitalist Progress Note ---
Date of Service September 09, 2023 Assessment & Plan (1) Colitis: Plan: -Patient presented with 1 day of loose bloody stools. Hemodynamically stable and nontoxic in appearance on admission. -CT abdomen and pelvis revealed marked concentric mucosal thickening involving the splenic flexure and descending colon with pericolonic fat stranding. -- Most likely secondary to ischemic colitis. Further supported by hypotension on admission. -C. difficile and stool BioFire panel negative. -Continue dicyclomine and metronidazole. Patient reports she is on this continuously by her PCP. -Currently well tolerating clear liquid diet. Advance as tolerated. (2) Hypertension: Plan: Chronic. Mildly elevated Continue carvedilol Continue amlodipine (3) Hyperlipidemia: Plan: Chronic. Stable. Continue simvastatin Plan Advance diet as tolerated CODE STATUS: Full code Admission and Anticipated Discharge Date Admission Date: September 09, 2023 Subjective Patient seen and evaluated at bedside. She reports 1 episode of a loose bloody bowel movement this morning, she states this was less bloody than her prior bowel movements. C. difficile and stool bio fire panel negative. She reports the significant left-sided abdominal pain that she experienced prior to admission has since resolved. She is tolerating the clear liquid diet well. She has no complaints at this time. Physical Exam Physical Exam: General: No acute distress, nondiaphoretic, well-developed, well-nourished. Skin: The skin was without rashes, erythema, edema, or bruising. Cardiac: Regular rate and rhythm without murmurs gallops or rubs. Pulm: Clear to auscultation bilaterally without wheezes, rales or rhonchi. No retractions or accessory muscle use. Abdominal: Positive bowel sounds x 4. Soft, nontender, without masses or organomegaly. No guarding or rebound tenderness. Neuro: A&O x3. No focal neurological deficits. Results & Data Results & Data Vital Signs (Past 12 Hours) Vital Signs Temp Pulse Pulse Pulse Resp BP Pulse Ox 09/09/23 15:07 75 09/09/23 14:43 36.7 C 87 16 142/64 H 95 09/09/23 13:08 76 13 134/74 94 09/09/23 09:32 73 16 143/80 H 98 09/09/23 08:01 77 O2 Del Method 09/09/23 15:07 04/24/24 14:43 Room Air 09/09/23 13:08 Room Air 09/09/23 09:32 Room Air 09/09/23 08:01 Laboratory Results Reviewed CBC Reviewed BMP Reviewed C. difficile and stool BioFire panel PG Care Time/CCT Total # of Minutes Spent Total Time Spent with Patient: Total time spent is greater than 50% in coordination of care (as documented) at patient's floor/unit and/or counseling patient: Coding Level of Care Code 85055 SUB INP/OBS CARE 2/35MIN Diagnoses Colitis K52.9 Hypertension I10 Hyperlipidemia E78.5
[2023-09-09] MEDS: LATANOPROST 0.005% OP SOLN 2.5 ML BTL OPB SCH (21:06)
[2023-09-09] MEDS: SIMVASTATIN 10 MG TAB PO SCH (21:06)
[2023-09-10 06:54] LABS: Hematocrit (blood only) 31.1 % (37.0-47.0); Hemoglobin 10.5 g/dl (12.0-16.0); Mean Corpuscular Hemoglobin 30.3 pg (25.0-34.0); Mean Corpuscular Hgb Conc 33.8 g/dL (32.0-36.0); Mean Corpuscular Volume 89.6 fL (80.0-100.0); Mean Platelet Volume 9.9 fL (9.4-12.4); Platelet Count 194 K/uL (130-400); RDW Coefficient of Variation 13.2 % (11.5-14.5); RDW Standard Deviation 43.8 fL (36.4-46.3); Red Blood Count 3.47 M/uL (4.20-5.40)
[2023-09-10 07:19] LABS: BUN Creatinine Ratio 10.5 (10-20); Calcium 8.4 mg/dl (8.6-10.3); Creatinine Clr Calc Pharmacy 46.7 ml/min; Est GFR (African American) 85.3 ml/min; Est GFR (Non-African American) 73.6 ml/min; Potassium 3.3 mmol/L (3.5-5.1)
[2023-09-10 08:01] VITALS: O2SAT 96
[2023-09-10] MEDS: POTASSIUM CHLORIDE CRTAB 20 MEQ TABCR PO STA (09:04)
[2023-09-10 09:14] VITALS: PULSE 74
[2023-09-10 11:37] VITALS: BP 127/81; RESP 17; TEMP 97.9
--- NOTE | 2023-09-10 18:21 | Discharge Summary ---
Date of Service September 10, 2023 Admission HPI Per Admitting Provider Lyudmila Arriola is a pleasant 83-year-old female with history of irritable bowel longstanding greater than 20 years presenting with abdominal pain and bloody diarrhea. Patient reports crampy lower abdominal pain as well as multiple episodes of bloody loose stools. Her symptoms lasted approximately 1 day and 1 night. Her last bowel movement was yesterday morning she has had no further bleeding since yesterday. She was taking dicyclomine as well as Flagyl at home as directed by her PCP for IBS flare Patient denies travel, sick contacts, recent hospitalization or antibiotic use She denies fever, chills, nausea, vomiting, chest pain, cough, shortness of breath. She has had decreased appetite and poor oral intake for the last several days. Admission Exam Per Admitting Provider General: patient resting comfortably, NAD, non-toxic in appearance, AA&O x 4 Skin: warm, dry, intact, no rashes or lesions HEENT: NC/AT, PERRL, EOMI, anicteric sclera, conjunctiva without injection, external ear normal to inspection and nontender, nares patent, moist mucus membranes, dentition intact, no oropharyngeal lesions, neck supple, trachea midline, no LAD, no thyromegaly, no JVD Heart: +S1/S2, regular, no m/r/g Lungs: equal air entry bilaterally, no rales/rhonchi/wheezes Abd: +BS, soft, NT/ND, no masses/organomegaly/ascites Ext: warm, 2+ pulses in UE/LE bilaterally, no clubbing/cyanosis or edema Neuro: nonfocal, patient AA&O x 4, speech intact, no facial droop, moving all extremities on command with equal strength 5/5 Principal Diagnosis Ischemic colitis Discharge Exam General: No acute distress, nondiaphoretic, well-developed, well-nourished. Skin: The skin was without rashes, erythema, edema, or bruising. Cardiac: Regular rate and rhythm without murmurs gallops or rubs. Pulm: Clear to auscultation bilaterally without wheezes, rales or rhonchi. No retractions or accessory muscle use. Abdominal: Positive bowel sounds x 4. Soft, nontender, without masses or organomegaly. No guarding or rebound tenderness. Neuro: A&O x3. No focal neurological deficits. Discharge Data Allergies Allergy/AdvReac Type Severity Reaction Status Date / Time morphine AdvReac Intermediate GI SYMPTOMS Verified 09/08/23 22:35 codeine AdvReac Mild NAUSEATED Verified 09/08/23 22:35 oxycodone AdvReac Mild NAUSEA Verified 09/08/23 22:35 Consultations 09/09/23 02:13 ED Decision to Admit Stat Ordered Studies 09/09/23 02:15 CT abd pelvis IV con only Stat Hospital Course (1) Colitis: -Patient presented with 1 day of loose bloody stools. Hemodynamically stable and nontoxic in appearance on admission. -CT abdomen and pelvis revealed marked concentric mucosal thickening involving the splenic flexure and descending colon with pericolonic fat stranding. -- Most likely secondary to ischemic colitis. Further supported by hypotension on admission. -C. difficile and stool BioFire panel negative. -Continue dicyclomine and metronidazole. Patient reports she is on this continuously by her PCP for IBS management. -Diet advance from clear liquids to low-fat low fiber and has been well- tolerated. Continue low-fat low fiber diet for about 1 week and then continue to advance as tolerated. -Follow-up with PCP outpatient. Consider colonoscopy given bloody bowel movements. (2) Hypertension: Chronic. Continue carvedilol Continue amlodipine (3) Hyperlipidemia: Chronic. Stable. Continue simvastatin Plan CODE STATUS: Full code Total Time Total Time Spent Total Time Spent (In Minutes): Greater than 30 minutes spent completing this discharge process including direct patient care, medication reconciliation, documentation, review of labs and images, and coordination of care. Discharge Plan Discharge Items Patient Disposition: Home - Self-Care Reason For Visit: LOWER GI BLEED Discharge Diagnosis: Ischemic colitis Activity: Resume your previous activity Non-emergency contact: Primary Care Provider Call non-emergency contact if: you have any medication questions and your symptoms worsen Follow-up/Referrals: Nilay Estrella MD [Primary Care Provider] - Diet: Regular and Other - See Diet Comment Diet Comment: Please follow a low-fat/low fiber diet for 1 week then advance as tolerated Addtl Attending Provider Instructions: Mrs. Arriola, Jens were admitted to the hospital because of suspicion for a lower GI bleed. This was due to your symptoms of loose bloody bowel movements. You had a CT scan of your abdomen and pelvis which revealed left-sided colitis (inflammation of your colon). This was most likely caused by ischemic colitis, which happens when blood flow to the colon is reduced. This causes symptoms including bloody diarrhea and severe belly pain. One of the most common causes for ischemic colitis is a sudden drop in blood pressure. Your blood pressure was low when you presented to the hospital, however it has remained normal since you have been admitted. Additionally, you were tested for various GI tract infections which were negative. You were treated with IV fluids and bowel rest with a diet of clear liquids. Since your blood pressure and bloody loose bowel movements improved, your diet was advanced to low-fat low fiber. This was well-tolerated and can be continued. Upon discharge from the hospital: * Please eat a low fiber diet for 1 week. These foods include breads, biscuits, pancakes, waffles, bagels, saltines, nelson crackers bananas, melons, applesauce, white rice, pasta, tender meat, fish and poultry, ham, terry, shellfish, lunch meat, dairy products. * Avoid high-fiber foods and raw fruits and vegetables for 1 week. These include whole grains, popcorn, brown rice, oatmeal, granola, quinoa, nuts, seeds, dried beans, baked beans, peas and lentils, dried fruit. * Stay hydrated and drink plenty of fluids. * Stay physically active as tolerated. * Please follow-up with your PCP. Their office will call you with an appointment date and time. * Continue to take your at home medications as prescribed. Please return to the hospital if you experience any of the following: Worsening abdominal pain, continued bloody bowel movements, prolonged nausea or vomiting, fever > 100.4 or chills, chest pain, shortness of breath, lightheadedness, or fainting. It was a pleasure taking care of you while you were in the hospital, Cynthia Mitchell PA-C Pending Studies at Discharge: No Stand-Alone Forms: [facility], Smoking Cessation Medications and DC Order Prescriptions: Continued amlodipine 2.5 mg tablet 2.5 mg PO DAILY Qty: 90 3RF simvastatin 10 mg tablet 10 mg PO HS Qty: 90 3RF dicyclomine 10 mg capsule 10 mg PO TID 90 Days Qty: 270 3RF carvedilol 25 mg tablet 25 mg PO BID Qty: 180 3RF Rx Instructions: must administer with a meal/food timolol maleate 0.5 % drops, once daily 1 drp OPB BID latanoprost 0.005 % drops 1 drp OPB HS garlic 1,000 mg capsule 1,000 mg PO DAILY metronidazole 500 mg tablet 500 mg PO TID PRN (Reason: IBS FLARE UPS) coenzyme Q10 [Co Q-10] 100 mg capsule 100 mg PO QAM cyanocobalamin (vitamin B-12) [Vitamin B-12] 1,000 mcg Tablet 1,000 mcg PO QAM aspirin 81 mg Tablet,Delayed Release (Dr/Ec) 81 mg PO HS cholecalciferol (vitamin D3) [Vitamin D3] 125 mcg (5,000 unit) Tablet 125 mcg PO 2XWK omeprazole 40 mg capsule,delayed release(DR/EC) 40 mg PO DAILY mometasone 0.1 % solution See Rx Instructions .ROUTE .COMPLEX PRN (Reason: ITCHY EARS) Rx Instructions: 5 topically as needed ;TOP PRN; 5 DROPS TO AFFECTED EAR(S) TWICE DAILY NEEDED FOR EAR ITCHING Discharge Orders: Discharge Order (Routine); Ordered 09/10/23 Ordered By: Cynthia Ambrose/Other Patient Handouts: Ischemic Colitis Admission Data Admit Date/Time: 09/09/23 02:37 Attending Provider: Robert Waite Admit Provider: Yolande Chambers Primary Care Provider: Nilay Estrella Other Providers: Yolande Chambers Other Interventions: Discharge Summary Assessment (RN) Last Done: 09/10/23 13:27 Coding Level of Care Code INP/OBS EV SAME DAY LV 2,70MIN Diagnoses Colitis K52.9 Hypertension I10 Hyperlipidemia E78.5
== END 2023-09-10 13:49 | disposition home or self-care (01) ==
LOC: EDINP 19:25 → ED 19:25 → SUATTDRO 09-09 02:37 → 2N 09-09 03:18
DX: I10 Essential (primary) hypertension; Z79.82 Long term (current) use of aspirin; E78.5 Hyperlipidemia, unspecified; K55.9 Vascular disorder of intestine, unspecified; Z87.891 Personal history of nicotine dependence; Z79.899 Other long term (current) drug therapy; E87.1 Hypo-osmolality and hyponatremia; Z88.5 Allergy status to narcotic agent

== ENCOUNTER 2023-11-07 20:19 | Inpatient (IN) ==
--- NOTE | 2023-11-07 21:27 | Emergency Department Note ---
Impression & Plan Acute hyponatremia, Anemia, Nausea, Hypokalemia, Hypomagnesemia ED Provider Note NAME: PAM MAR AGE: 83 SEX: F : 1940 ARRIVES VIA: Walk-In INFORMANT: Patient ED PROVIDER(S): Surya Diaz DO CHIEF COMPLAINT: Nausea and not eating HPI: Patient is an 83-year-old female with a past medical history of transaminitis, anemia, gastritis, hypothyroidism who presents to the ER for an upset stomach. She notes she had a scope by Dr. Silva performed on the of this month. Since then she has felt nauseated and does not want to eat. Because she is not eating she does not want to take her pills that she believes she has take these on a full stomach. She has no trouble swallowing. Nothing is getting stuck. She has no belly pain. No dysuria, urgency, or frequency. She is a lot of water and this is coming down without difficulty. ADDITIONAL HISTORY OBTAINED: Additional history obtained from and family at bedside who notes that the patient was scoped and since then has not wanted to eat. Chronic Medical/Social Conditions Affecting Care: Per HPI PAST MEDICAL HISTORY:See Below PAST SURGICAL HISTORY:See Below FAMILY HISTORY:See Below SOCIAL HISTORY:See Below HOME MEDICATIONS:See Below ALLERGIES:See Below VITALS:See Below PHYSICAL EXAMINATION: GENERAL: Sitting up in bed, alert, well appearing, well nourished, no distress, non-toxic EYE EXAM: normal conjunctiva. OROPHARYNX: Mucous membranes are dry NECK: supple, no nuchal rigidity, no adenopathy, non-tender LUNGS: Clear to auscultation. Normal chest wall mechanics HEART: no murmurs, S1 normal and S2 normal ABDOMEN: abdomen soft, non-tender, normo-active bowel sounds, no masses, no rebound or guarding. BACK: Back is symmetrical on inspection and there is no deformity, no midline tenderness, no CVA tenderness. SKIN: no rashes and no bruising UPPER EXTREMITIES: upper extremities are grossly normal. LOWER EXTREMITIES: No pitting edema. NEURO EXAM: Normal sensorium, cranial nerves II-XII grossly intact, normal speech, no gross weakness of arms, no gross weakness of legs. MEDICAL DECISION MAKING: Patient is an 83-year-old female who presents the ER for the above-stated complaint. IV was established blood work was obtained. Labs show no significant leukocytosis and a mild anemia 11.2. INR unremarkable. BMP with hyponatremia at 113. Hypokalemia 3.3 and magnesium at 1.3. Urine and serum osmolality were both low and the urine started him was 22. CT abdomen pelvis was performed and unremarkable. Patient was initially upon presentation given IV fluids as she appeared very dehydrated. Lab work would suggest however that she is drinking a large amount of free water. Patient was seen and evaluated by the hospitalist admitted for further workup. Please see their note for further details. Potassium and mag were ordered. Patient was not altered and had no focal weakness or numbness. Consults/Care Managements Discussions: Per MDM Triage Nursing notes reviewed. Limited review of prior medical records performed Vital Signs: reviewed and remarkable for HTN Differential diagnosis: Infection, dehydration, metabolic abnormality, hypo/hyperglycemia, electrolyte disturbance, anemia, hypoxia, cardiac sources, intracerebral event, toxicologic, neurologic, as well as other pathologies. ER treatment provided: See below Diagnostics interpreted by me include EKG and cardiac monitoring as listed below: -Cardiac Monitoring: An order was placed for continuous cardiac monitoring. The monitor shows a rate of 90 with sinus rhythm. -ECG: none -Laboratory studies:Interpreted by me as stated above in MDM and shown below. Imaging studies: Xrays: As interpreted by me:none CTs show: CT abdomen pelvis per my preliminary interpretation showed no obvious bowel obstruction CT abdomen pelvis per radiology as described above Procedures:none Critical Care: None Past Med/Surg History Problem List (Updated 11/08/23 @ 00:28 by Surya Diaz DO) Hypomagnesemia (Acute) Hypokalemia (Acute) Nausea (Acute) Acute hyponatremia (Acute) Lyme disease GERD (gastroesophageal reflux disease) Acute hyponatremia Elevated LFTs Elevated ALT measurement Status post colonoscopy (Acute) Nocturnal leg cramps Colitis (Acute) Milium cyst Atypical mole Anemia (Acute) Otitis externa Gastritis Impacted ear wax Hearing loss Hyperlipidemia Impaired glucose metabolism Hypothyroidism Irritable bowel Hypertension Chronic diarrhea Glaucoma Melanocytic nevus of trunk Medical History (Updated 11/08/23 @ 00:28 by Surya Diaz DO) Family history of GI bleeding Low blood pressure reading History of lower GI bleeding dx early september 2023/hospitalized [facility]/reason for upcoming procedure. Hypothyroid denies/denies med. History of asthma 50 yr ago. Hyperlipidemia HTN (hypertension) Glaucoma IBS (irritable bowel syndrome) Anemia denies hx or current Acute hyponatremia not that pt aware of Colitis pt not sure Arthritis IN BACK Acid reflux Surgical History History of thumb surgery (~2015) right History of esophagogastroduodenoscopy (EGD) (~2010) History of bilateral cataract extraction History of colonoscopy History of urologic surgery BLADDER TAC X3 History of hysterectomy History of back surgery FOR COMPRESSION FX H/O: hysterectomy Family History Brother Hypertension Sister Myocardial infarction Diabetes Anxiety Mother Family history of stroke Myocardial infarction Hypertension Diabetes Gallbladder disease Father Family history of lung cancer Myocardial infarction Sister Family history of kidney cancer Breast cancer Sister Family history of reaction to anesthesia Other Family history of glaucoma Heart disease No family history of bleeding disorder Denies family history of Ovarian cancer Prostate cancer Colorectal cancer Social History Smoking Status: Never smoker Tobacco Type: Cigarettes Age Started Using Tobacco: 22; Age Quit Using Tobacco: 22; Cigarettes Per Day: socially/a few months; Second Hand Exposure: No; Do You Dip or Chew Tobacco: No; Hx Alcohol Use: No Hx Substance Use: No Preferred Language: Lebanese Communication Ability: Effective Visual Impairment: Limited Hearing Ability: Use of Hearing Aid Guard Dance Hall Required: No Beliefs That Will Affect Care: None marital status: Current Living Situation: Spouse current occupational status: retired How many Children do You have: 4 Feels Safe at Home: Yes Childhood Exposure to Second-Hand Smoke: No Diet: regular caffeine: Yes Dental Care, Regularly: No Physical Activity Frequency: Does not Exercise Seatbelt Use: always Sunscreen Use: Yes Do you think of yourself as: straight/heterosexual Assistive Devices: Denture - Upper, Denture - Lower, Glasses and Hearing Aid - Bilateral Allergies Allergies Allergy/AdvReac Type Severity Reaction Status Date / Time oxycodone AdvReac Severe NAUSEA Verified 11/07/23 23:47 codeine AdvReac Unknown NAUSEATED Verified 11/07/23 23:47 morphine AdvReac Unknown GI SYMPTOMS Verified 11/07/23 23:47 Home Meds Home Medications Medication Instructions Recorded Confirmed timolol maleate 0.5 % once daily 1 drp OPB BID 07/25/19 06/22/24 eye drops latanoprost 0.005 % eye drops 1 drp OPB HS 12/29/18 11/07/23 cyanocobalamin (vitamin B-12) 1,000 mcg PO QAM 01/05/19 11/07/23 1,000 mcg tablet (Vitamin B-12) coenzyme Q10 100 mg capsule (Co 100 mg PO QAM 03/23/20 11/07/23 Q-10) garlic 1,000 mg capsule 1,000 mg PO QAM 01/02/22 11/07/23 aspirin 81 mg tablet,delayed 81 mg PO HS 09/08/23 11/07/23 release cholecalciferol (vitamin D3) 125 125 mcg PO 2XWK 09/08/23 11/07/23 mcg (5,000 unit) tablet (Vitamin D3) mometasone 0.1 % topical solution 1 applic UD PRN ITCHY EARS 09/08/23 11/07/23 omeprazole 40 mg capsule,delayed 40 mg PO QAM Acid Reflux 09/08/23 11/07/23 release amlodipine 2.5 mg tablet 2.5 mg PO QAM 10/14/23 11/07/23 spironolactone 25 1 tab PO .HOLD 10/14/23 11/07/23 mg-hydrochlorothiazide 25 mg tablet carvedilol 25 mg tablet 25 mg PO .HOLD 11/07/23 11/07/23 dicyclomine 10 mg capsule 10 mg PO HS 11/07/23 11/07/23 dicyclomine 10 mg capsule 20 mg PO QAM IBS 11/07/23 11/07/23 quinidine sulfate 200 mg tablet 100 mg PO .HOLD 11/07/23 11/07/23 Previous Rx's Medication Instructions Recorded doxycycline hyclate 100 mg tablet 100 mg PO BID #20 tabs 11/03/23 tramadol 50 mg tablet 50 mg PO TID PRN pain #30 tabs 11/06/23 Results & Data (ED) Vital Signs Vital Signs - 24 hr 11/07/23 20:23 11/07/23 20:23 11/07/23 20:40 Temperature 36.5 C Temperature Source Temporal Artery Scan Pulse Rate 89 95 H Pulse Rate [Apical] 92 H Respiratory Rate 18 22 Respiratory Depth Normal Blood Pressure 171/89 H Blood Pressure [Right Arm] 177/97 H Blood Pressure Mean 116 Blood Pressure Mean [Right Arm] 123 Blood Pressure Position Sitting Pulse Oximetry 98 98 Oxygen Delivery Method Room Air Room Air Sepsis Recent Fever Within 48 Hours No Sepsis New/Unexplained Change in Mental Status No Sepsis Action Taken by Nursing No Action Required 11/07/23 21:11 11/07/23 21:30 11/07/23 21:53 Temperature Temperature Source Pulse Rate 94 H Pulse Rate [Apical] 91 H 94 H Respiratory Rate 19 18 18 Respiratory Depth Blood Pressure Blood Pressure [Right Arm] 174/130 H 163/91 H Blood Pressure Mean Blood Pressure Mean [Right Arm] 144 115 Blood Pressure Position Pulse Oximetry 97 94 96 Oxygen Delivery Method Room Air Room Air Room Air Sepsis Recent Fever Within 48 Hours Sepsis New/Unexplained Change in Mental Status Sepsis Action Taken by Nursing 11/07/23 22:31 Temperature Temperature Source Pulse Rate Pulse Rate [Apical] 91 H Respiratory Rate 16 Respiratory Depth Blood Pressure Blood Pressure [Right Arm] 155/111 H Blood Pressure Mean Blood Pressure Mean [Right Arm] 125 Blood Pressure Position Pulse Oximetry 95 Oxygen Delivery Method Room Air Sepsis Recent Fever Within 48 Hours Sepsis New/Unexplained Change in Mental Status Sepsis Action Taken by Nursing Laboratory Data 11/07/23 20:40 11/07/23 20:40 Lab Results 11/07/23 11/07/23 11/07/23 Range/Units 20:40 21:08 22:04 WBC 6.56 (4.8-10.8) K/ul RBC 3.68 L (4.20-5.40) M/uL Hgb 11.2 L (12.0-16.0) g/dl Hct 30.7 L (37.0-47.0) % MCV 83.4 (80.0-100.0) fL MCH 30.4 (25.0-34.0) pg MCHC 36.5 H (32.0-36.0) g/dL RDW Std Deviation 38.5 (36.4-46.3) fL RDW Coeff of Dorothy 12.7 (11.5-14.5) % Plt Count 474 H (130-400) K/uL MPV 9.5 (9.4-12.4) fL Immature Gran % (Auto) 1.4 % Neut % (Auto) 62.4 % Lymph % (Auto) 21.6 % [place] % (Auto) 14.0 % Eos % (Auto) 0.0 % Baso % (Auto) 0.6 % Neut # (Auto) 4.09 (1.40-6.50) K/uL Lymph # (Auto) 1.42 (1.20-3.40) K/uL [place] # (Auto) 0.92 H (0.11-0.59) K/uL Eos # (Auto) 0.00 (0.00-0.50) K/uL Baso # (Auto) 0.04 (0.00-0.20) K/uL Immature Gran # (Auto) 0.09 (0.01-0.20) K/uL PT Cancelled INR Cancelled Sodium 113 L* (136-145) mmol/L Potassium 3.3 L (3.5-5.1) mmol/L Chloride 79 L (98-107) mmol/L Carbon Dioxide 23 (21-32) mmol/L Anion Gap 11 (3-11) BUN 15 (6-23) mg/dl Creatinine 0.95 (0.6-1.2) mg/dl Est Cr Clr Drug Dosing Not Reportable Est GFR ( Amer) 65.1 ml/min Est GFR (Non-Af Amer) 56.2 ml/min BUN/Creatinine Ratio 15.8 (10-20) Glucose 90 (70-99(Fasting)) mg/dl Osmolality 239 L* (280-300) mOsm/kg Lactate 0.8 (0.4-2.0) mmol/L Calcium 9.5 (8.6-10.3) mg/dl Magnesium 1.3 L (1.7-2.4) mg/dl Total Bilirubin 0.7 (0.2-1.0) mg/dl AST 41 H (13-39) U/L ALT 74 H (7-52) U/L Alkaline Phosphatase 199 H (34-104) U/L Troponin I High Sens 5.2 (0-14) pg/ml Total Protein 7.7 (6.0-8.3) gm/dl Albumin 4.2 (3.4-5.0) gm/dl Globulin 3.5 (2.5-4.0) gm/dl Albumin/Globulin Ratio 1.2 (0.9-2) Lipase 107 H (11-82) U/L Urine Color Yellow Urine Appearance Clear (Clear) Urine pH 6.0 (4.5-7.5) Ur Specific [place] 1.014 (1.000-1.030) Urine Protein Negative (Negative) Urine Glucose (UA) Negative (Negative) Urine Ketones 1+ H (Negative) Urine Blood Negative (Negative) Urine Nitrite Negative (Negative) Urine Bilirubin Negative (Negative) Urine Urobilinogen Negative (Negative) Ur Leukocyte Esterase Negative (Negative) Urine Osmolality 204 L (500-800) mOsm/kg Ur Random Sodium 22 mmol/L Anaplasma Smear See Comment Babesia Smear See Comment 11/07/23 Range/Units 23:03 WBC (4.8-10.8) K/ul RBC (4.20-5.40) M/uL Hgb (12.0-16.0) g/dl Hct (37.0-47.0) % MCV (80.0-100.0) fL MCH (25.0-34.0) pg MCHC (32.0-36.0) g/dL RDW Std Deviation (36.4-46.3) fL RDW Coeff of Dorothy (11.5-14.5) % Plt Count (130-400) K/uL MPV (9.4-12.4) fL Immature Gran % (Auto) % Neut % (Auto) % Lymph % (Auto) % [place] % (Auto) % Eos % (Auto) % Baso % (Auto) % Neut # (Auto) (1.40-6.50) K/uL Lymph # (Auto) (1.20-3.40) K/uL [place] # (Auto) (0.11-0.59) K/uL Eos # (Auto) (0.00-0.50) K/uL Baso # (Auto) (0.00-0.20) K/uL Immature Gran # (Auto) (0.01-0.20) K/uL PT 11.8 INR 1.1 Sodium (136-145) mmol/L Potassium (3.5-5.1) mmol/L Chloride (98-107) mmol/L Carbon Dioxide (21-32) mmol/L Anion Gap (3-11) BUN (6-23) mg/dl Creatinine (0.6-1.2) mg/dl Est Cr Clr Drug Dosing Est GFR ( Amer) ml/min Est GFR (Non-Af Amer) ml/min BUN/Creatinine Ratio (10-20) Glucose (70-99(Fasting)) mg/dl Osmolality (280-300) mOsm/kg Lactate (0.4-2.0) mmol/L Calcium (8.6-10.3) mg/dl Magnesium (1.7-2.4) mg/dl Total Bilirubin (0.2-1.0) mg/dl AST (13-39) U/L ALT (7-52) U/L Alkaline Phosphatase (34-104) U/L Troponin I High Sens (0-14) pg/ml Total Protein (6.0-8.3) gm/dl Albumin (3.4-5.0) gm/dl Globulin (2.5-4.0) gm/dl Albumin/Globulin Ratio (0.9-2) Lipase (11-82) U/L Urine Color Urine Appearance (Clear) Urine pH (4.5-7.5) Ur Specific [place] (1.000-1.030) Urine Protein (Negative) Urine Glucose (UA) (Negative) Urine Ketones (Negative) Urine Blood (Negative) Urine Nitrite (Negative) Urine Bilirubin (Negative) Urine Urobilinogen (Negative) Ur Leukocyte Esterase (Negative) Urine Osmolality (500-800) mOsm/kg Ur Random Sodium mmol/L Anaplasma Smear Babesia Smear Administered Medications Magnesium Sulfate/Dextrose (Magnesium Sulfate / D5w) 1 gm in 100 mls @ 50 mls/hr IV Q2H LYNETTE Stop: 11/08/23 04:44 Last Admin: 11/07/23 23:36 Dose: 50 mls/hr Documented By: ELEAZAR Doxycycline Hyclate 100 mg/ (Dextrose) 100 mls @ 50 mls/hr IV NOW STA Stop: 11/08/23 00:43 Last Admin: 11/07/23 23:33 Dose: 50 mls/hr Documented By: ELEAZAR Discontinued Medications Sodium Chloride (Nss) 1,000 mls @ 999 mls/hr IV .Q1H1M ONE Stop: 11/07/23 22:25 Last Infusion: 11/07/23 22:38 Dose: Infused Documented By: Admin: 11/07/23 21:33 Dose: 999 mls/hr Documented By: ELEAZAR Potassium Chloride (K Jomar / Wtr) 10 meq in 100 mls @ 100 mls/hr IV ONE ONE Stop: 11/07/23 23:01 Last Infusion: 11/07/23 22:47 Dose: 0 mls/hr Documented By: Admin: 11/07/23 22:25 Dose: 100 mls/hr Documented By: ELEAZAR Ceftriaxone Sodium (Rocephin) 2,000 mg in 50 mls @ 100 mls/hr IV NOW STA Stop: 11/07/23 23:16 Last Admin: 11/07/23 23:06 Dose: 100 mls/hr Documented By: ELEAZAR Ioversol (Optiray 320 100ml) 92 ml IV ONCE ONE Stop: 11/07/23 21:42 Last Admin: 11/07/23 21:42 Dose: 92 ml Documented By: GABO Ondansetron HCl (Ondansetron Inj 2 Mg/Ml 2 Ml Vial) 4 mg IV NOW STA Stop: 11/07/23 21:26 Last Admin: 11/07/23 21:34 Dose: 4 mg Documented By: ELEAZAR Imaging Data Radiologist's Impression: Abdomen/Pelvis CT 11/07/23 21:25 Exam(s): CT ABDOMEN + PELVIS With Contrast IV Amt: 92 ml optiray 320 EXAM: CT Abdomen and Pelvis With Intravenous Contrast CLINICAL HISTORY: Reason for exam: abd pain. TECHNIQUE: Axial computed tomography images of the abdomen and pelvis with intravenous contrast. CTDI is 10 mGy and DLP is 461 mGy-cm. Automated exposure control was utilized for the study. A dose lowering technique was utilized adhering to the principles of ALARA. CONTRAST: Patient received 92 ml optiray 320 of IV contrast COMPARISON: September 09, 2023 FINDINGS: Lung bases: Unremarkable. No mass. No consolidation. ABDOMEN: Liver: Unremarkable. No mass. Gallbladder and bile ducts: Unremarkable. No calcified stones. No ductal dilation. Pancreas: Unremarkable. No mass. No ductal dilation. Spleen: Unremarkable. No splenomegaly. Adrenals: Unremarkable. No mass. Kidneys and ureters: Mild dilation of the proximal right ureter, unchanged. No ureterolithiasis is seen. I suspect this is normal baseline. The kidneys enhance symmetrically with contrast. Stomach and bowel: See below. PELVIS: Appendix: Bowel loops are nondilated. The appendix is normal. No acute inflammatory changes are seen involving the bowel. The previous is seen left colitis has resolved. There is mild diverticulosis of the sigmoid colon without evidence of acute diverticulitis. Bladder: Unremarkable. No mass. Reproductive: Unremarkable as visualized. ABDOMEN and PELVIS: Intraperitoneal space: The uterus is absent. No free fluid is seen in the pelvis. No free air. Bones/joints: Moderate multilevel degenerative changes throughout the spine. Previous kyphoplasty at L4. No acute fracture or subluxation is seen. There is 20 scoliosis. Soft tissues: Unremarkable. Vasculature: The abdominal aorta is mildly calcified but nondilated. Lymph nodes: Unremarkable. No enlarged lymph nodes. IMPRESSION: Bowel loops are nondilated. The appendix is normal. No acute inflammatory changes are seen involving the bowel. The previous is seen left colitis has resolved. There is mild diverticulosis of the sigmoid colon without evidence of acute diverticulitis. Electronically signed by: Stef Chambers MD 11/08/23 00:12 AM Discharge Plan Visit Data Chief Complaint: GI Assessment Stated Complaint: UNABLE TO EAT, UNABLE TO SWALLOW PILLS, NAUSEA ED Provider: Surya Diaz Discharge Problem: Acute hyponatremia, Anemia, Nausea, Hypokalemia, Hypomagnesemia Forms Stand Alone Forms: My [facility] Connected Data Prescriptions Prescriptions: No Action tramadol 50 mg tablet 50 mg PO TID PRN (Reason: pain) Qty: 30 0RF timolol maleate 0.5 % drops, once daily 1 drp OPB BID latanoprost 0.005 % drops 1 drp OPB HS garlic 1,000 mg capsule 1,000 mg PO QAM coenzyme Q10 [Co Q-10] 100 mg capsule 100 mg PO QAM doxycycline hyclate 100 mg tablet 100 mg PO BID Qty: 20 3RF cyanocobalamin (vitamin B-12) [Vitamin B-12] 1,000 mcg Tablet 1,000 mcg PO QAM dicyclomine 10 mg capsule 10 mg PO HS carvedilol 25 mg tablet 25 mg PO .HOLD Rx Instructions: must administer with a meal/food quinidine sulfate 200 mg tablet 100 mg PO .HOLD Patient Comments: not sure why i take dicyclomine 10 mg capsule 20 mg PO QAM aspirin 81 mg Tablet,Delayed Release (Dr/Ec) 81 mg PO HS cholecalciferol (vitamin D3) [Vitamin D3] 125 mcg (5,000 unit) Tablet 125 mcg PO 2XWK omeprazole 40 mg capsule,delayed release(DR/EC) 40 mg PO QAM mometasone 0.1 % solution 1 applic UD PRN (Reason: ITCHY EARS) Rx Instructions: 5 topically as needed ;TOP PRN; 5 DROPS TO AFFECTED EAR(S) TWICE DAILY NEEDED FOR EAR ITCHING spironolacton-hydrochlorothiaz 25-25 mg tablet 1 tab PO .HOLD amlodipine 2.5 mg tablet 2.5 mg PO QAM Referrals Referrals: Nilay Estrella MD [Primary Care Provider] - Discharge Problem: Anemia Qualifiers: Anemia type: unspecified type Qualified Code(s): D64.9 - Anemia, unspecified
[2023-11-07 21:32] LABS: Alanine Aminotransferase 74 U/L (7-52); Albumin Globulin Ratio 1.2 (0.9-2); Albumin Level 4.2 gm/dl (3.4-5.0); Alkaline Phosphatase 199 U/L (34-104); Anion Gap 11 (3-11); Aspartate Aminotransferase 41 U/L (13-39); BUN Creatinine Ratio 15.8 (10-20); Bilirubin,Total 0.7 mg/dl (0.2-1.0); Blood Urea Nitrogen 15 mg/dl (6-23); Calcium 9.5 mg/dl (8.6-10.3); Carbon Dioxide 23 mmol/L (21-32); Chloride 79 mmol/L (98-107); Est GFR (African American) 65.1 ml/min; Est GFR (Non-African American) 56.2 ml/min; Globulin 3.5 gm/dl (2.5-4.0); Glucose 90 mg/dl (70-99(Fasting)); Lipase 107 U/L (11-82); Magnesium 1.3 mg/dl (1.7-2.4); Potassium 3.3 mmol/L (3.5-5.1); Sodium 113 mmol/L (136-145); Total Protein 7.7 gm/dl (6.0-8.3); Troponin I High Sensitivity 5.2 pg/ml (0-14)
[2023-11-07] MEDS: SODIUM CHLORIDE 0.9% 1,000 ML IV ONE (21:33)
[2023-11-07] MEDS: ONDANSETRON INJ 2 MG/ML 2 ML VIAL IV STA (21:34)
[2023-11-07] MEDS: OPTIRAY 320 100ml IV ONE (21:42)
[2023-11-07 21:59] LABS: Basophils # (auto) 0.04 K/uL (0.00-0.20); Basophils % (auto) 0.6 %; Hematocrit (blood only) 30.7 % (37.0-47.0); Hemoglobin 11.2 g/dl (12.0-16.0); Immature Granulocytes # (auto) 0.09 K/uL (0.01-0.20); Immature Granulocytes % (auto) 1.4 %; Lymphocytes # (auto) 1.42 K/uL (1.20-3.40); Lymphocytes % (auto) 21.6 %; Mean Corpuscular Hemoglobin 30.4 pg (25.0-34.0); Mean Corpuscular Hgb Conc 36.5 g/dL (32.0-36.0); Mean Corpuscular Volume 83.4 fL (80.0-100.0); Mean Platelet Volume 9.5 fL (9.4-12.4); Monocytes # (auto) 0.92 K/uL (0.11-0.59); Neutrophils # (auto) 4.09 K/uL (1.40-6.50); Neutrophils % (auto) 62.4 %; Platelet Count 474 K/uL (130-400); RDW Coefficient of Variation 12.7 % (11.5-14.5); RDW Standard Deviation 38.5 fL (36.4-46.3); Red Blood Count 3.68 M/uL (4.20-5.40); White Blood Count 6.56 K/ul (4.8-10.8)
[2023-11-07 22:19] LABS: Appearance Urine Clear (Clear); Bilirubin Urine Negative (Negative); Blood Urine Negative (Negative); Color Urine Yellow; Glucose Urine UA Negative (Negative); Ketones Urine 1+ (Negative); Leukocyte Esterase Urine Negative (Negative); Nitrite Urine Negative (Negative); Protein Urine Negative (Negative); Specific Gravity Urine 1.014 (1.000-1.030); Urobilinogen Urine Negative (Negative)
[2023-11-07] MEDS: POTASSIUM CHLORIDE / WTR 10 MEQ/100 ML PLCT IV ONE (22:25)
--- NOTE | 2023-11-07 22:58 | History & Physical Report ---
Date of Service November 07, 2023 Assessment & Plan (1) Acute hyponatremia: (2) Lyme disease: (3) Colitis: (4) Nocturnal leg cramps: (5) Gastritis: (6) Hypertension: (7) Chronic diarrhea: (8) Elevated LFTs: (9) Status post colonoscopy: Plan Acute hyponatremia- Sodium 113, serum osmolality 239, urine osmolality 204 Patient has been drinking large volumes of fluid, since she is unable to eat anything due to nausea, and due to very dry mouth Heart healthy diet, fluid restriction 1500 mL Repeat laboratories in a.m. Lyme disease- Hold oral doxycycline, of which she has had 2 days dosages Doxycycline 100 mg IV every 12 hours Ceftriaxone 2 g IV every 24 hours Ehrlichiosis testing is pending Add anaplasmosis and babesiosis peripheral smear and antibody testing Hypertension- Continue carvedilol, but for now reduce dosing from 25 mg twice daily 12.5 mg p.o. twice daily, with first dose now Hold amlodipine, spironolactone-HCTZ and quinidine sulfate Colitis/severe nausea/decreased oral intake/GERD/gastritis Had workup in 09/28/2020, with negative abdominal ultrasound, CT scan of abdomen and pelvis, and HIDA scan CT scan of abdomen and pelvis on 09/09/2023 suggested inflammatory infectious colitis Recent liver ultrasound on 10/31/2023 was normal Colonoscopy on 10/28/2023 was negative for colitis Pantoprazole 40 mg IV now and every morning Negative workup on 06/06/2021 for celiac disease Other possibilities include exocrine pancreatic insufficiency and/or bacterial overgrowth syndrome Family members in the exam room, report that everyone in the family seems to have an issue with colitis Abnormal LFTs are improving, follow serially Electrolyte disturbances- Secondary to decreased oral intake for foods, and increased intake of water as compensation Magnesium 1.3, give mag sulfate 3 g IV Potassium 3.3, after magnesium replacement is completed, give potassium chloride 10 mEq IV Repeat laboratories in a.m. History of Present Illness Chief Complaint: The patient presents to the emergency department with persistence of nausea with no appetite, decreased oral intake for foods, increased water intake due to dry mouth, and 3 days of generalized myalgias, arthralgias and fatigue. Primary Care Provider: Nilay Estrella MD The patient is a 83-year-old female with a past medical history including chronic colitis, anemia, gastritis, hyperlipidemia, impaired glucose metabolism, irritable bowel, hypothyroidism, hypertension, chronic diarrhea and glaucoma. She has had colitis for a number of years, with a thorough workup in the past, without diagnosis being reached. She had a CT scan done 09/09/2023 suggestive of inflammatory infectious colitis, with colonoscopy on 10/28/2023 that was normal. She had a HIDA scan performed on 12/20/2020 which was negative for gallbladder dysfunction, and has had celiac testing done in 2020 with negative testing. She presents today due to the addition of generalized myalgias and arthralgias, worsening oral intake, and increased intake of fluids Allergies Allergy/AdvReac Type Severity Reaction Status Date / Time oxycodone AdvReac Severe NAUSEA Verified 11/07/23 23:47 codeine AdvReac Unknown NAUSEATED Verified 11/07/23 23:47 morphine AdvReac Unknown GI SYMPTOMS Verified 11/07/23 23:47 Home Medications Medication Instructions Recorded Confirmed Type timolol maleate 0.5 % once daily 1 drp OPB BID 12/09/18 11/07/23 History eye drops latanoprost 0.005 % eye drops 1 drp OPB HS 12/29/18 11/07/23 History cyanocobalamin (vitamin B-12) 1,000 mcg PO QAM 01/05/19 11/07/23 History 1,000 mcg tablet (Vitamin B-12) coenzyme Q10 100 mg capsule (Co 100 mg PO QAM 03/23/20 11/07/23 History Q-10) garlic 1,000 mg capsule 1,000 mg PO QAM 01/02/22 11/07/23 History aspirin 81 mg tablet,delayed 81 mg PO HS 09/08/23 11/07/23 History release cholecalciferol (vitamin D3) 125 125 mcg PO 2XWK 09/08/23 11/07/23 History mcg (5,000 unit) tablet (Vitamin D3) mometasone 0.1 % topical solution 1 applic UD PRN ITCHY EARS 09/08/23 11/07/23 History omeprazole 40 mg capsule,delayed 40 mg PO QAM Acid Reflux 09/08/23 11/07/23 History release amlodipine 2.5 mg tablet 2.5 mg PO QAM 10/14/23 11/07/23 History spironolactone 25 1 tab PO .HOLD 10/14/23 11/07/23 History mg-hydrochlorothiazide 25 mg tablet doxycycline hyclate 100 mg tablet 100 mg PO BID #20 tabs 11/03/23 11/07/23 Rx tramadol 50 mg tablet 50 mg PO TID PRN pain #30 tabs 11/06/23 11/07/23 Rx carvedilol 25 mg tablet 25 mg PO .HOLD 11/07/23 11/07/23 History dicyclomine 10 mg capsule 10 mg PO HS 11/07/23 11/07/23 History dicyclomine 10 mg capsule 20 mg PO QAM IBS 11/07/23 11/07/23 History quinidine sulfate 200 mg tablet 100 mg PO .HOLD 11/07/23 11/07/23 History Past Med/Surg History Problem List (Updated 11/07/23 @ 23:45 by Eriberto Forde MD) Lyme disease GERD (gastroesophageal reflux disease) Acute hyponatremia Elevated LFTs Elevated ALT measurement Status post colonoscopy (Acute) Nocturnal leg cramps Colitis (Acute) Milium cyst Atypical mole Anemia Otitis externa Gastritis Impacted ear wax Hearing loss Hyperlipidemia Impaired glucose metabolism Hypothyroidism Irritable bowel Hypertension Chronic diarrhea Glaucoma Melanocytic nevus of trunk Medical History (Updated 11/07/23 @ 23:45 by Eriberto Forde MD) Family history of GI bleeding Low blood pressure reading History of lower GI bleeding dx early september 2023/hospitalized [facility]/reason for upcoming procedure. Hypothyroid denies/denies med. History of asthma 50 yr ago. Hyperlipidemia HTN (hypertension) Glaucoma IBS (irritable bowel syndrome) Anemia denies hx or current Acute hyponatremia not that pt aware of Colitis pt not sure Arthritis IN BACK Acid reflux Surgical History History of thumb surgery (~2015) right History of esophagogastroduodenoscopy (EGD) (~2010) History of bilateral cataract extraction History of colonoscopy History of urologic surgery BLADDER TAC X3 History of hysterectomy History of back surgery FOR COMPRESSION FX H/O: hysterectomy Family History Brother Hypertension Sister Myocardial infarction Diabetes Anxiety Mother Family history of stroke Myocardial infarction Hypertension Diabetes Gallbladder disease Father Family history of lung cancer Myocardial infarction Sister Family history of kidney cancer Breast cancer Sister Family history of reaction to anesthesia Other Family history of glaucoma Heart disease No family history of bleeding disorder Denies family history of Ovarian cancer Prostate cancer Colorectal cancer Social History Smoking Status: Never smoker Tobacco Type: Cigarettes Age Started Using Tobacco: 22; Age Quit Using Tobacco: 22; Cigarettes Per Day: socially/a few months; Second Hand Exposure: No; Do You Dip or Chew Tobacco: No; Hx Alcohol Use: No Hx Substance Use: No Preferred Language: [place]araguan Communication Ability: Effective Visual Impairment: Limited Hearing Ability: Use of Hearing Aid Blow Mold Operator Required: No Beliefs That Will Affect Care: None marital status: Current Living Situation: Spouse current occupational status: retired How many Children do You have: 4 Feels Safe at Home: Yes Childhood Exposure to Second-Hand Smoke: No Diet: regular caffeine: Yes Dental Care, Regularly: No Physical Activity Frequency: Does not Exercise Seatbelt Use: always Sunscreen Use: Yes Do you think of yourself as: straight/heterosexual Assistive Devices: Denture - Upper, Denture - Lower, Glasses and Hearing Aid - Bilateral Review of Systems Review of Systems: The patient denies chest pain, palpitations, shortness of breath, dyspnea on exertion, cough, lower extremity swelling, sore throat, fevers, chills, sweats, vomiting, blood in urine or stool, dysuria, urinary frequency or urgency, memory loss, loss of consciousness, rash, abnormal bruising or bleeding, imbalance, focal weakness, numbness or tingling in arms or legs, back or neck pain, or night sweats. The review of systems is otherwise negative other than for that already noted above, and at least 10 systems have been reviewed. Physical Exam Physical Exam: The patient is awake, alert and oriented 3, looks very fatigued, normocephalic and atraumatic, lying in bed and in no acute distress. HEENT--PERRL, EOMI, mucous membranes and oropharynx moderately dry. Neck--supple. No JVD. No bruits. Thyroid normal, trachea midline, no adenopathy. Heart--normal S1 and S2. No murmurs, rubs or gallops. Lungs--clear bilaterally, no respiratory distress, no accessory muscle use. Abdomen--normal bowel sounds and soft. Nontender. Nondistended Extremities--no cyanosis or clubbing. No edema. Dermatologic--skin is dry Neurologic--cranial nerves II through XII grossly intact. Rheumatologic--normal range of motion. Psychiatric--normal affect. Results & Data Results & Data Vital Signs (Past 12 Hours) Vital Signs Temp Pulse Pulse Resp BP BP Pulse Ox 11/07/23 22:31 91 H 16 155/111 H 95 11/07/23 21:53 94 H 18 163/91 H 96 11/07/23 21:30 91 H 18 174/130 H 94 11/07/23 21:11 94 H 19 97 11/07/23 20:40 92 H 22 177/97 H 98 11/07/23 20:23 95 H 11/07/23 20:23 36.5 C 89 18 171/89 H 98 O2 Del Method 11/07/23 22:31 Room Air 11/07/23 21:53 Room Air 11/07/23 21:30 Room Air 11/07/23 21:11 Room Air 11/07/23 20:40 Room Air 11/07/23 20:23 11/07/23 20:23 Room Air Laboratory Results Laboratory Results WBC 6.56 K/ul (4.8-10.8) 11/07/23 20:40 RBC 3.68 M/uL (4.20-5.40) L 11/07/23 20:40 Hgb 11.2 g/dl (12.0-16.0) L 11/07/23 20:40 Hct 30.7 % (37.0-47.0) L 11/07/23 20:40 MCV 83.4 fL (80.0-100.0) 11/07/23 20:40 MCH 30.4 pg (25.0-34.0) 11/07/23 20:40 MCHC 36.5 g/dL (32.0-36.0) H 11/07/23 20:40 RDW Std Deviation 38.5 fL (36.4-46.3) 11/07/23 20:40 RDW Coeff of Dorothy 12.7 % (11.5-14.5) 11/07/23 20:40 Plt Count 474 K/uL (130-400) H 11/07/23 20:40 MPV 9.5 fL (9.4-12.4) 11/07/23 20:40 Immature Gran % (Auto) 1.4 % 11/07/23 20:40 Neut % (Auto) 62.4 % 11/07/23 20:40 Lymph % (Auto) 21.6 % 11/07/23 20:40 Pike % (Auto) 14.0 % 11/07/23 20:40 Eos % (Auto) 0.0 % 11/07/23 20:40 Baso % (Auto) 0.6 % 11/07/23 20:40 Neut # (Auto) 4.09 K/uL (1.40-6.50) 11/07/23 20:40 Lymph # (Auto) 1.42 K/uL (1.20-3.40) 11/07/23 20:40 Pike # (Auto) 0.92 K/uL (0.11-0.59) H 11/07/23 20:40 Eos # (Auto) 0.00 K/uL (0.00-0.50) 11/07/23 20:40 Baso # (Auto) 0.04 K/uL (0.00-0.20) 11/07/23 20:40 Immature Gran # (Auto) 0.09 K/uL (0.01-0.20) 11/07/23 20:40 PT Cancelled 11/07/23 20:40 INR Cancelled 11/07/23 20:40 Sodium 113 mmol/L (136-145) L* 11/07/23 20:40 Potassium 3.3 mmol/L (3.5-5.1) L 11/07/23 20:40 Chloride 79 mmol/L (98-107) L 11/07/23 20:40 Carbon Dioxide 23 mmol/L (21-32) 11/07/23 20:40 Anion Gap 11 (3-11) 11/07/23 20:40 BUN 15 mg/dl (6-23) 11/07/23 20:40 Creatinine 0.95 mg/dl (0.6-1.2) 11/07/23 20:40 Est Cr Clr Drug Dosing Not Reportable 11/07/23 20:40 Est GFR ( Amer) 65.1 ml/min 11/07/23 20:40 Est GFR (Non-Af Amer) 56.2 ml/min 11/07/23 20:40 BUN/Creatinine Ratio 15.8 (10-20) 11/07/23 20:40 Glucose 90 mg/dl (70-99(Fasting)) 11/07/23 20:40 Osmolality 239 mOsm/kg (280-300) L* 11/07/23 20:40 Lactate 0.8 mmol/L (0.4-2.0) 11/07/23 21:08 Calcium 9.5 mg/dl (8.6-10.3) 11/07/23 20:40 Magnesium 1.3 mg/dl (1.7-2.4) L 11/07/23 20:40 Total Bilirubin 0.7 mg/dl (0.2-1.0) 11/07/23 20:40 AST 41 U/L (13-39) H 11/07/23 20:40 ALT 74 U/L (7-52) H 11/07/23 20:40 Alkaline Phosphatase 199 U/L (34-104) H 11/07/23 20:40 Troponin I High Sens 5.2 pg/ml (0-14) 11/07/23 20:40 Total Protein 7.7 gm/dl (6.0-8.3) 11/07/23 20:40 Albumin 4.2 gm/dl (3.4-5.0) 11/07/23 20:40 Globulin 3.5 gm/dl (2.5-4.0) 11/07/23 20:40 Albumin/Globulin Ratio 1.2 (0.9-2) 11/07/23 20:40 Lipase 107 U/L (11-82) H 11/07/23 20:40 Urine Color Yellow 11/07/23 22:04 Urine Appearance Clear (Clear) 11/07/23 22:04 Urine pH 6.0 (4.5-7.5) 11/07/23 22:04 Ur Specific [place] 1.014 (1.000-1.030) 11/07/23 22:04 Urine Protein Negative (Negative) 11/07/23 22:04 Urine Glucose (UA) Negative (Negative) 11/07/23 22:04 Urine Ketones 1+ (Negative) H 11/07/23 22:04 Urine Blood Negative (Negative) 11/07/23 22:04 Urine Nitrite Negative (Negative) 11/07/23 22:04 Urine Bilirubin Negative (Negative) 11/07/23 22:04 Urine Urobilinogen Negative (Negative) 11/07/23 22:04 Ur Leukocyte Esterase Negative (Negative) 11/07/23 22:04 Urine Osmolality 204 mOsm/kg (500-800) L 11/07/23 22:04 Ur Random Sodium 22 mmol/L 11/07/23 22:04 Anaplasma Smear See Comment 11/07/23 20:40 Babesia Smear See Comment 11/07/23 20:40 Code Status & VTE Plan Code Status Full code VTE Prophylaxis Plan VTE Prophylaxis will be ordered: Yes PG Care Time/CCT Total # of Minutes Spent Total Time Spent with Patient: Total time spent is greater than 50% in coordination of care (as documented) at patient's floor/unit and/or counseling patient: Coding Level of Care Code 01187 INT INP/OBS CARE 3/75MIN Diagnoses Acute hyponatremia E87.1 Lyme disease A69.20 Colitis K52.9 Nocturnal leg cramps G47.62 Gastritis K29.70 Hypertension I10 Chronic diarrhea K52.9 Elevated LFTs R79.89 Status post colonoscopy Z98.890
[2023-11-07] MEDS: cefTRIAXone SODIUM 2,000 MG/50 ML BAG IV STA (23:06)
[2023-11-07] MEDS: DOXYCYCLINE HYCLATE 100 MG in DEXTROSE 5% MINI-B 100 ML IV STA (23:33)
[2023-11-07] MEDS: MAGNESIUM SULFATE / D5W 1 GM/100 ML BAG IV SCH (23:36)
[2023-11-07 23:45] LABS: INR 1.1 (0.9-1.1); Prothrombin Time 11.8 Seconds (9.0-12.0)
--- NOTE | 2023-11-08 00:05 | Billing Data ---
Date of Service November 08, 2023 Coding Level of Care Code 18542 INT INP/OBS CARE
--- NOTE | 2023-11-08 00:13 | CT Scan Report ---
Exam(s): CT ABDOMEN + PELVIS With Contrast IV Amt: 92 ml optiray 320 EXAM: CT Abdomen and Pelvis With Intravenous Contrast CLINICAL HISTORY: Reason for exam: abd pain. TECHNIQUE: Axial computed tomography images of the abdomen and pelvis with intravenous contrast. CTDI is 10 mGy and DLP is 461 mGy-cm. Automated exposure control was utilized for the study. A dose lowering technique was utilized adhering to the principles of ALARA. CONTRAST: Patient received 92 ml optiray 320 of IV contrast COMPARISON: September 09, 2023 FINDINGS: Lung bases: Unremarkable. No mass. No consolidation. ABDOMEN: Liver: Unremarkable. No mass. Gallbladder and bile ducts: Unremarkable. No calcified stones. No ductal dilation. Pancreas: Unremarkable. No mass. No ductal dilation. Spleen: Unremarkable. No splenomegaly. Adrenals: Unremarkable. No mass. Kidneys and ureters: Mild dilation of the proximal right ureter, unchanged. No ureterolithiasis is seen. I suspect this is normal baseline. The kidneys enhance symmetrically with contrast. Stomach and bowel: See below. PELVIS: Appendix: Bowel loops are nondilated. The appendix is normal. No acute inflammatory changes are seen involving the bowel. The previous is seen left colitis has resolved. There is mild diverticulosis of the sigmoid colon without evidence of acute diverticulitis. Bladder: Unremarkable. No mass. Reproductive: Unremarkable as visualized. ABDOMEN and PELVIS: Intraperitoneal space: The uterus is absent. No free fluid is seen in the pelvis. No free air. Bones/joints: Moderate multilevel degenerative changes throughout the spine. Previous kyphoplasty at L4. No acute fracture or subluxation is seen. There is 20 scoliosis. Soft tissues: Unremarkable. Vasculature: The abdominal aorta is mildly calcified but nondilated. Lymph nodes: Unremarkable. No enlarged lymph nodes. IMPRESSION: Bowel loops are nondilated. The appendix is normal. No acute inflammatory changes are seen involving the bowel. The previous is seen left colitis has resolved. There is mild diverticulosis of the sigmoid colon without evidence of acute diverticulitis. Electronically signed by: Stef Chambers MD 11/08/23 00:12 AM
[2023-11-08] MEDS: traMADol HCL 50 MG TABLET PO PRN (00:43)
[2023-11-08] MEDS: KETOROLAC TROMETHAMINE 15 MG/ML VIAL IV PRN (00:44)
[2023-11-08] MEDS: carvediloL 12.5 MG TAB PO ONE (00:49)
[2023-11-08] MEDS: PANTOprazole 40 MG in SYRINGE 0 ML IV ONE (00:49)
[2023-11-08] MEDS ORDERED: traMADol HCL 50 MG TABLET PO PRN (01:22)
[2023-11-08] MEDS: HYDROmorphone INJ 0.5 MG/0.5 ML SYR IV PRN (01:52)
[2023-11-08 03:55] LABS: Basophils # (auto) 0.03 K/uL (0.00-0.20); Basophils % (auto) 0.6 %; Hematocrit (blood only) 26.4 % (37.0-47.0); Hemoglobin 9.5 g/dl (12.0-16.0); Immature Granulocytes # (auto) 0.04 K/uL (0.01-0.20); Immature Granulocytes % (auto) 0.8 %; Lymphocytes # (auto) 1.34 K/uL (1.20-3.40); Lymphocytes % (auto) 27.6 %; Mean Corpuscular Hemoglobin 30.1 pg (25.0-34.0); Mean Corpuscular Volume 83.5 fL (80.0-100.0); Mean Platelet Volume 9.1 fL (9.4-12.4); Monocytes # (auto) 0.78 K/uL (0.11-0.59); Neutrophils # (auto) 2.67 K/uL (1.40-6.50); Platelet Count 356 K/uL (130-400); RDW Coefficient of Variation 12.4 % (11.5-14.5); RDW Standard Deviation 38.1 fL (36.4-46.3); Red Blood Count 3.16 M/uL (4.20-5.40); White Blood Count 4.86 K/ul (4.8-10.8)
[2023-11-08 04:25] LABS: Alanine Aminotransferase 59 U/L (7-52); Albumin Globulin Ratio 1.2 (0.9-2); Albumin Level 3.4 gm/dl (3.4-5.0); Alkaline Phosphatase 155 U/L (34-104); Anion Gap 10 (3-11); Aspartate Aminotransferase 34 U/L (13-39); BUN Creatinine Ratio 16.7 (10-20); Bilirubin,Total 0.4 mg/dl (0.2-1.0); Blood Urea Nitrogen 13 mg/dl (6-23); Calcium 8.3 mg/dl (8.6-10.3); Carbon Dioxide 21 mmol/L (21-32); Chloride 86 mmol/L (98-107); Est GFR (African American) 82.6 ml/min; Est GFR (Non-African American) 71.3 ml/min; Globulin 2.9 gm/dl (2.5-4.0); Glucose 110 mg/dl (70-99(Fasting)); Magnesium 2.3 mg/dl (1.7-2.4); Potassium 3.3 mmol/L (3.5-5.1); Sodium 117 mmol/L (136-145); Total Protein 6.3 gm/dl (6.0-8.3)
[2023-11-08] MEDS ORDERED: STAT IV/IM STA (07:00)
[2023-11-08 07:21] LABS: iSTAT Creatinine 1.1 mg/dl (0.6-1.3); iSTAT Hemoglobin 11.2 g/dl (12.0-16.0); iSTAT Ionized Calcium 1.21 mmol/l (1.12-1.32); iSTAT Potassium 3.6 mmol/L (3.3-5.0)
[2023-11-08] MEDS: SODIUM CHLORIDE 3 % 150 ML IV ONE (07:42)
[2023-11-08] MEDS: carvediloL 12.5 MG TAB PO SCH (07:42)
[2023-11-08] MEDS: TIMOLOL MALEATE 0.5% OP SOLN 5 ML BTL OPB SCH (08:44)
[2023-11-08] MEDS ORDERED: carvediloL 25 MG TAB PO SCH (09:00)
[2023-11-08] MEDS: LIDOCAINE 5% 1 PATCH TD STA (09:07)
[2023-11-08] MEDS: HEPARIN SOD 5,000 UNIT/0.5 ML VIAL SQ SCH (09:08)
[2023-11-08] MEDS: LIDOCAINE 5% 1 PATCH TD ONE (09:08)
[2023-11-08 10:13] LABS: BUN Creatinine Ratio 15.5 (10-20); Calcium 8.4 mg/dl (8.6-10.3); Creatinine Clr Calc Pharmacy 41.3 ml/min; Est GFR (African American) 75.5 ml/min; Est GFR (Non-African American) 65.2 ml/min
--- NOTE | 2023-11-08 10:53 | Hospitalist Progress Note ---
Date of Service November 08, 2023 Assessment & Plan (1) Acute hyponatremia: Plan: Sodium 113, serum osmolality 239, urine osmolality 204, urine sodium 22 Patient has been drinking large volumes of water, since she is unable to eat anything due to nausea possibly from doxycycline but could also be side effect of quinidine Is also on spironolactone and HCTZ-hold Receiving normal saline and will continue for 2 L Serial BMP to follow sodium level closely-rising up to 124 by the evening- appropriate rise Follow BMP in the morning Start sodium chloride tablet 1 g p.o. daily until taking in more p.o. Antiemetics for nausea, IV Protonix in case of medication induced gastritis from p.o. doxycycline Stop quinidine (2) Lyme disease: Plan: Suspected as an outpatient although Western blot is not overtly positive for such. She has been having joint pains all over and has previously been treated for Lyme disease several years ago Stop oral doxycycline due to nausea as above and start Doxycycline 100 mg IV every 12 hours Ehrlichiosis, anaplasmosis, and babesiosis testing is pending but smears are negative Pain control with Toradol, Tylenol, lidocaine patch over lower back Will try to avoid opioids as they are heavily sedating and less needed for severe pain (3) Gastritis: Plan: Currently likely from po doxycycline Has had a lot of GI issues over the years Had workup in 09/28/2020, with negative abdominal ultrasound, CT scan of abdomen and pelvis, and HIDA scan CT scan of abdomen and pelvis on 09/09/2023 suggested inflammatory infectious colitis Recent liver ultrasound on 10/31/2023 was normal when she had significantly elevated LFTs which are now improving Colonoscopy on 10/28/2023 was negative for colitis Continue pantoprazole 40 mg IV now and every morning Negative workup on 06/06/2021 for celiac disease Other possibilities include exocrine pancreatic insufficiency and/or bacterial overgrowth syndrome Family members in the exam room, report that everyone in the family seems to have an issue with colitis Abnormal LFTs are improving, follow serially (4) Abnormal ECG: Plan: ECG from 10/30 and 11/06 with right bundle branch block and T wave inversions in anterior leads which are new from 08/2023 Check echocardiogram Stop quinidine (5) Lower back pain: Plan: Add lidocaine patch, pain control as above Has a history of kyphoplasty (6) Chronic diarrhea: Plan: As noted above (7) Hypertension: Plan: Continue carvedilol, but for now reduce dosing from 25 mg twice daily 12.5 mg p.o. twice daily Hold amlodipine, spironolactone-HCTZ (8) Electrolyte abnormality: Plan: Secondary to decreased oral intake for foods, and increased intake of water as compensation Magnesium 1.3, now improved with replacement Potassium improving with replacement Follow BMP, magnesium in the morning (9) Elevated LFTs: Plan: On 10/30 found to have elevation of AST at 193, ALT 379, alkaline phosphatase 321, bilirubin normal. Was thought at that time to be secondary potentially to recent anesthesia for colonoscopy? Liver ultrasound was normal on 10/30 except for periportal lymph nodes upper limits of normal in size LFTs are only minimally increased at this time and improving, CTA of abd/pelvis shows resolution of previous colitis and otherwise No abnormalities in the liver or gallbladder or bile ducts Follow LFTs (10) Hypothyroidism: Plan: TSH mildly elevated at 5.3 but has been having very poor p.o. intake Follow-up as an outpatient When not sick Plan DVT prophylaxis-heparin SQ Disposition-continued stay Discussed care with and daughter at bedside Admission and Anticipated Discharge Date Admission Date: November 07, 2023 Subjective The patient was very drowsy when I came to see her and was taking a nap on her stomach in the bed. Her daughter and are at the bedside and provide most of the history. They report she is having a lot of pain in her lower back where she frequently gets pain from a previous kyphoplasty for compression fracture. She also complains of pain in her shoulders and all over her body. She received some opiate pain medicines and is now drowsy. They report that she has been nauseated for some time but much worse since taking doxycycline for Lyme disease and has not wanted to eat much at all for the past 3 to 4 days but she is drinking water. Physical Exam Constitutional: WD/WN, vitals as above Respiratory: normal respiratory effort, lungs clear to auscultation Cardiovascular: RRR, no murmur, no edema Gastrointestinal (Abdomen): normal bowel sounds, soft, nontender, no hepatosplenomegaly Psychiatric: Orientation: + not alert (Very drowsy but wakes up to verbal stimulus) Results & Data Results & Data Vital Signs (Past 12 Hours) Vital Signs Pulse Pulse Resp BP Pulse Ox O2 Del Method O2 Flow Rate 11/08/23 06:54 65 11/08/23 06:30 65 18 112/68 99 Nasal Cannula 2 11/08/23 04:16 77 18 124/68 97 Nasal Cannula 2 11/08/23 02:30 71 14 128/67 92 Room Air 11/08/23 00:37 102 H 11/08/23 00:30 104 H 28 H 176/134 H 99 Room Air Laboratory Results CBC, BMP x 3, magnesium, LFTs, lipase, urine awesome and urine sodium reviewed PG Care Time/CCT Total # of Minutes Spent Total Time Spent with Patient: Total time spent is greater than 50% in coordination of care (as documented) at patient's floor/unit and/or counseling patient: Coding Level of Care Code 32182 SUB INP/OBS CARE 3/50MIN Diagnoses Acute hyponatremia E87.1 Lyme disease A69.20 Gastritis K29.70 Abnormal ECG R94.31 Lower back pain M54.50 Chronic diarrhea K52.9 Hypertension I10 Electrolyte abnormality E87.8 Elevated LFTs R79.89 Hypothyroidism E03.9
[2023-11-08] MEDS: POTASSIUM CHLORIDE / WTR 10 MEQ/100 ML PLCT IV SCH (10:55)
[2023-11-08] MEDS: SODIUM CHLORIDE 0.9% 1,000 ML IV SCH (11:55)
[2023-11-08] MEDS: DOXYCYCLINE HYCLATE 100 MG in DEXTROSE 5% MINI-B 100 ML IV SCH (11:56)
[2023-11-08] MEDS: PANTOprazole 40 MG in SYRINGE 0 ML IV SCH (11:57)
[2023-11-08 13:31] LABS: Potassium 3.8 mmol/L (3.5-5.1)
[2023-11-08 13:35] LABS: BUN Creatinine Ratio 16.7 (10-20); Creatinine Clr Calc Pharmacy 44.4 ml/min; Est GFR (African American) 82.6 ml/min; Est GFR (Non-African American) 71.3 ml/min
[2023-11-08] MEDS: SODIUM CHLORIDE 1 GM TABLET PO SCH (17:08)
[2023-11-08] MEDS: ONDANSETRON INJ 2 MG/ML 2 ML VIAL IV PRN (17:32)
[2023-11-08 20:08] LABS: Calcium 8.1 mg/dl (8.6-10.3); Potassium 3.6 mmol/L (3.5-5.1)
[2023-11-08 20:16] LABS: BUN Creatinine Ratio 13.3 (10-20); Creatinine Clr Calc Pharmacy 38.5 ml/min; Est GFR (African American) 69.5 ml/min
[2023-11-08] MEDS: LATANOPROST 0.005% OP SOLN 2.5 ML BTL OPB SCH (21:36)
--- NOTE | 2023-11-08 22:10 | XCELERA ---
[id number]
[2023-11-08 23:52] LABS: BUN Creatinine Ratio 14.8 (10-20); Calcium 7.9 mg/dl (8.6-10.3); Creatinine Clr Calc Pharmacy 42.8 ml/min; Est GFR (African American) 78.9 ml/min; Est GFR (Non-African American) 68.1 ml/min; Potassium 3.5 mmol/L (3.5-5.1)
[2023-11-09] MEDS: DICLOFENAC SOD 1% GEL 100 GM TUBE EXT PRN (03:59)
[2023-11-09 04:36] LABS: Basophils # (auto) 0.03 K/uL (0.00-0.20); Basophils % (auto) 0.8 %; Hematocrit (blood only) 25.7 % (37.0-47.0); Hemoglobin 8.9 g/dl (12.0-16.0); Immature Granulocytes # (auto) 0.03 K/uL (0.01-0.20); Immature Granulocytes % (auto) 0.8 %; Lymphocytes # (auto) 1.31 K/uL (1.20-3.40); Lymphocytes % (auto) 36.1 %; Mean Corpuscular Hemoglobin 29.4 pg (25.0-34.0); Mean Corpuscular Hgb Conc 34.6 g/dL (32.0-36.0); Mean Corpuscular Volume 84.8 fL (80.0-100.0); Mean Platelet Volume 9.3 fL (9.4-12.4); Monocytes # (auto) 0.57 K/uL (0.11-0.59); Monocytes % (auto) 15.7 %; Neutrophils # (auto) 1.69 K/uL (1.40-6.50); Neutrophils % (auto) 46.6 %; Platelet Count 348 K/uL (130-400); RDW Coefficient of Variation 12.9 % (11.5-14.5); RDW Standard Deviation 39.5 fL (36.4-46.3); Red Blood Count 3.03 M/uL (4.20-5.40); White Blood Count 3.63 K/ul (4.8-10.8)
[2023-11-09 04:55] LABS: Albumin Globulin Ratio 1.2 (0.9-2); Albumin Level 3.3 gm/dl (3.4-5.0); BUN Creatinine Ratio 14.3 (10-20); Bilirubin,Total 0.4 mg/dl (0.2-1.0); Calcium 7.9 mg/dl (8.6-10.3); Creatinine Clr Calc Pharmacy 49.5 ml/min; Est GFR (African American) 94.2 ml/min; Est GFR (Non-African American) 81.3 ml/min; Globulin 2.8 gm/dl (2.5-4.0); Magnesium 1.8 mg/dl (1.7-2.4); Potassium 3.5 mmol/L (3.5-5.1); Total Protein 6.1 gm/dl (6.0-8.3)
[2023-11-09] MEDS: ACETAMINOPHEN 500 MG TAB PO PRN (05:08)
--- NOTE | 2023-11-09 07:50 | Electrocardiogram Report ---
Test Reason : Blood Pressure : / mmHG Vent. Rate : 096 BPM Atrial Rate : 096 BPM P-R Int : 096 ms QRS Dur : 118 ms QT Int : 388 ms P-R-T Axes : 047 080 009 degrees QTc Int : 490 ms Sinus rhythm with short SD with Premature atrial complexes Incomplete right bundle branch block Diffuse Nonspecific T wave abnormality Prolonged QT Abnormal ECG When compared with ECG of 31-OCT-2023 11:10, Premature atrial complexes are now Present Confirmed by Mariano Hurley ([id number]) on 11/09/2023 7:50:05 AM Referred By: REFERRED SELF Confirmed By:Mariano Hurley
[2023-11-09] MEDS: LIDOCAINE 5% 1 PATCH TD SCH (09:23)
[2023-11-09] MEDS: MAGNESIUM SULFATE / D5W 1 GM/100 ML BAG IV ONE (09:24)
[2023-11-09] MEDS: POTASSIUM CHLORIDE / WTR 10 MEQ/100 ML PLCT IV SCH (09:25)
[2023-11-09] MEDS: HYDROmorphone INJ 0.5 MG/0.5 ML SYR IV PRN (09:36)
[2023-11-09 10:32] LABS: Calcium 8.5 mg/dl (8.6-10.3); Creatinine Clr Calc Pharmacy 46.4 ml/min; Est GFR (African American) 86.6 ml/min; Est GFR (Non-African American) 74.8 ml/min; Potassium 3.5 mmol/L (3.5-5.1)
[2023-11-09 10:52] LABS: Ferritin 319.1 ng/ml (8-388)
[2023-11-09 10:58] LABS: Folate (Folic Acid),Ser orPlas 10.64 ng/ml (>5.38)
[2023-11-09 10:59] LABS: Vitamin B12 > 1500 pg/ml (180-914)
--- NOTE | 2023-11-09 13:39 | Hospitalist Progress Note ---
Date of Service November 09, 2023 Assessment & Plan (1) Acute hyponatremia: Plan: Sodium 113, serum osmolality 239, urine osmolality 204, urine sodium 22 Patient has been drinking large volumes of water, since she is unable to eat anything due to nausea possibly from doxycycline but could also be side effect of quinidine Is also on spironolactone and HCTZ-continue to hold Received normal saline x 2 L and now Na+ improved to 130 Continue NaCl 1000mg po daily until po intake improves further Follow BMP in the morning Antiemetics for nausea, IV Protonix in case of medication induced gastritis from p.o. doxycycline Stop quinidine and use magnesium for nocturnal muscle cramps instead Consider stopping HCTZ (2) Lyme disease: Plan: Suspected as an outpatient although Western blot is not overtly positive for such. She has been having joint pains all over and myalgias and has previously been treated for Lyme disease several years ago CK normal Stopped oral doxycycline due to nausea as above and started Doxycycline 100 mg IV every 12 hours-will now convert to amoxicillin 500mg po tid to finish out 10 day course for Lyme Ehrlichiosis titer negative; anaplasmosis, and babesiosis PCR testing is pending but smears are negative Pain control with Tylenol, lidocaine patch over lower back, po dilaudid and IV dilaudid-working well so far with IV but encouraged po use to see if helps Voltaren gel also on board (3) Gastritis: Plan: Likely from po doxycycline Has had a lot of GI issues over the years-Had workup in 09/28/2020, with negative abdominal ultrasound, CT scan of abdomen and pelvis, and HIDA scan Negative workup on 06/06/[address] scan of abdomen and pelvis on 09/09/2023 suggested inflammatory infectious colitis Recent liver ultrasound on 10/31/2023 was normal when she had significantly elevated LFTs which are now improving Colonoscopy on 10/28/2023 was negative for colitis Continue pantoprazole 40 mg daily but change to po Discontinued po doxy Seems to be improving and able to eat better (4) Lower back pain: Plan: With severe pain in back as well as pain all over and in all muscles, possibly from Lyme but also could be side effect maybe of quinidine? Ongoing for weeks CT A/P with no fractures seen in spine Has a h/o kyphoplasty in lumbar spine and tends to get lower back pain at this site if she doesn't walk outside every day. She has not been walking much due to extreme heat outside Continue lidocaine patch, pain control as above (5) Abnormal ECG: Plan: ECG from 10/30 and 11/06 with right bundle branch block and T wave inversions in anterior leads which are new from 08/2023 Checked echocardiogram-negative Stopped quinidine (6) Chronic diarrhea: Plan: As noted above (7) Hypertension: Plan: Continue carvedilol and with rising BPs, can increase back to home dose of 25 mg twice daily Continue to hold amlodipine, spironolactone-HCTZ (8) Electrolyte abnormality: Plan: Hypomagnesemia, Hypokalemia-replace lytes and start po magnesium at bedtime also fo rleg cramps Follow BMP, magnesium in the morning (9) Elevated LFTs: Plan: On 10/30 found to have elevation of AST at 193, ALT 379, alkaline phosphatase 321, bilirubin normal. Was thought at that time to be secondary potentially to recent anesthesia for colonoscopy? Liver ultrasound was normal on 10/30 except for periportal lymph nodes upper limits of normal in size LFTs are only minimally increased at this time and improving, CTA of abd/pelvis shows resolution of previous colitis and otherwise No abnormalities in the liver or gallbladder or bile ducts. EBV titer shows past infection Follow LFTs in AM Check acute hepatitis panel-pending (10) Hypothyroidism: Plan: TSH mildly elevated at 5.3 but has been having very poor p.o. intake Follow-up as an outpatient When not sick (11) Nocturnal leg cramps: Plan: start po magnesium and stop quinidine (12) Anemia: Plan: hgb baseline around 10.5 and she reports recent GI bleeding about 2 monts ago No bleeding seen here. Hgb down to 8.9 today likely dilutional. MCV low normal Check Fe studies--> normal, B12 and folate normal, TSH as above ok Likely anemia of chronic disease Follow CBC Plan DVT prophylaxis-heparin SQ Disposition-continued stay, but can dc to home tomorrow if sodium continues to improve and pain controlled with po pain meds. PT/OT consulted but pt is fairly independent Discussed care with at bedside Admission and Anticipated Discharge Date Admission Date: November 07, 2023 Subjective Pt much more awake and alert today but was having severe lower back pain and also c/o pain all over her body and in her muscles. Her appetite is slightly improved and she did eat a little bit today. Nausea improved Tele with NSR rate 80-90s Physical Exam Constitutional: WD/WN, vitals as above Respiratory: normal respiratory effort, lungs clear to auscultation Cardiovascular: RRR, no murmur, no edema Gastrointestinal (Abdomen): normal bowel sounds, soft, nontender, no hepatosplenomegaly Musculoskeletal: lidocaine patch over lower mid back but no TTP, no masses or ecchymosis 5/5 strength in LEs throughout Psychiatric: A+Ox3, euthymic affect Results & Data Results & Data Vital Signs (Past 12 Hours) Vital Signs Temp Pulse Pulse Resp BP Pulse Ox O2 Del Method 11/09/23 11:52 36.6 C 84 17 137/77 95 Room Air 11/09/23 10:09 72 11/09/23 07:25 36.6 C 84 18 158/87 H 96 Room Air 11/09/23 03:53 36.8 C 88 18 157/80 H 97 Room Air Laboratory Results CBC, BMP, LFTs, magnesium, EBV titer, iron studies, B12 and folate levels all reviewed PG Care Time/CCT Total # of Minutes Spent Total Time Spent with Patient: Total time spent is greater than 50% in coordination of care (as documented) at patient's floor/unit and/or counseling patient: Coding Level of Care Code 01294 SUB INP/OBS CARE 3/50MIN Diagnoses Acute hyponatremia E87.1 Lyme disease A69.20 Gastritis K29.70 Lower back pain M54.50 Abnormal ECG R94.31 Chronic diarrhea K52.9 Hypertension I10 Electrolyte abnormality E87.8 Elevated LFTs R79.89 Hypothyroidism E03.9 Nocturnal leg cramps G47.62 Anemia D64.9 Anemia type: unspecified type (12) Anemia Anemia type: unspecified type Qualified Code(s): D64.9 - Anemia, unspecified
[2023-11-09 14:08] LABS: HepB Surface Ag with confirm Negative (Negative)
[2023-11-09 14:16] LABS: HepC Ab Rflx HepCQuant RNA Negative (Negative)
[2023-11-09] MEDS: MAGNESIUM OXIDE 400 MG TAB PO SCH (20:41)
[2023-11-10] MEDS: HYDROmorphone HCL 2 MG TAB PO PRN (05:49)
[2023-11-10 06:30] LABS: Basophils # (auto) 0.04 K/uL (0.00-0.20); Hematocrit (blood only) 27.2 % (37.0-47.0); Hemoglobin 9.6 g/dl (12.0-16.0); Immature Granulocytes # (auto) 0.03 K/uL (0.01-0.20); Immature Granulocytes % (auto) 0.8 %; Lymphocytes # (auto) 1.86 K/uL (1.20-3.40); Lymphocytes % (auto) 48.7 %; Mean Corpuscular Hemoglobin 30.5 pg (25.0-34.0); Mean Corpuscular Hgb Conc 35.3 g/dL (32.0-36.0); Mean Corpuscular Volume 86.3 fL (80.0-100.0); Mean Platelet Volume 9.2 fL (9.4-12.4); Monocytes # (auto) 0.52 K/uL (0.11-0.59); Monocytes % (auto) 13.6 %; Neutrophils # (auto) 1.37 K/uL (1.40-6.50); Neutrophils % (auto) 35.9 %; Platelet Count 356 K/uL (130-400); RDW Standard Deviation 40.8 fL (36.4-46.3); Red Blood Count 3.15 M/uL (4.20-5.40); White Blood Count 3.82 K/ul (4.8-10.8)
[2023-11-10 06:54] LABS: Albumin Level 3.4 gm/dl (3.4-5.0); BUN Creatinine Ratio 10.4 (10-20); Bilirubin Direct 0.1 mg/dl (0-0.2); Bilirubin,Total 0.4 mg/dl (0.2-1.0); Calcium 8.5 mg/dl (8.6-10.3); Creatinine Clr Calc Pharmacy 52.4 ml/min; Est GFR (African American) 95.5 ml/min; Est GFR (Non-African American) 82.4 ml/min; Magnesium 1.9 mg/dl (1.7-2.4); Potassium 3.6 mmol/L (3.5-5.1); Total Protein 6.3 gm/dl (6.0-8.3)
[2023-11-10] MEDS: SODIUM CHLORIDE 1 GM TABLET PO SCH (08:38)
[2023-11-10] MEDS: PANTOprazole 40 MG TAB PO SCH (08:39)
[2023-11-10] MEDS: AMOXICILLIN 500 MG CAP PO SCH (08:40)
[2023-11-10 11:27] LABS: Hepatitis A Antibody IgM NON-REACTIVE (NON-REACTIVE); Hepatitis B Core Antibody IgM NON-REACTIVE (NON-REACTIVE)
--- NOTE | 2023-11-10 12:46 | Hospitalist Progress Note ---
Date of Service November 10, 2023 Assessment & Plan (1) Acute hyponatremia: Plan: Sodium 113, serum osmolality 239, urine osmolality 204, urine sodium 22 Patient has been drinking large volumes of water, since she is unable to eat anything due to nausea possibly from doxycycline but could also be side effect of quinidine Is also on spironolactone and HCTZ-continue to hold Sodium was improving however subsequently down trended to 128. Sodium tablets increased to twice daily. Continue to trend BMP daily Received normal saline x 2 L and now Na+ improved to 130 Antiemetics for nausea, IV Protonix in case of medication induced gastritis from p.o. doxycycline Stop quinidine and use magnesium for nocturnal muscle cramps instead Stop HCTZ if still not improving (2) Lyme disease: Plan: Suspected as an outpatient although Western blot is not overtly positive for such. She has been having joint pains all over and myalgias and has previously been treated for Lyme disease several years ago CK normal Stopped oral doxycycline due to nausea as above and started Doxycycline 100 mg IV every 12 hours-will now convert to amoxicillin 500mg po tid to finish out 10 day course for Lyme Ehrlichiosis titer negative; anaplasmosis, and babesiosis PCR testing is pending but smears are negative Pain control with Tylenol, lidocaine patch over lower back, po dilaudid and IV dilaudid-working well so far with IV but encouraged po use to see if helps Voltaren gel also on board (3) Gastritis: Plan: Likely from po doxycycline Has had a lot of GI issues over the years-Had workup in 09/28/2020, with negative abdominal ultrasound, CT scan of abdomen and pelvis, and HIDA scan Negative workup on 06/06/[address] scan of abdomen and pelvis on 09/09/2023 suggested inflammatory infectious colitis Recent liver ultrasound on 10/31/2023 was normal when she had significantly elevated LFTs which are now improving Colonoscopy on 10/28/2023 was negative for colitis Continue pantoprazole 40 mg daily but change to po Discontinued po doxy Seems to be improving and able to eat better (4) Lower back pain: Plan: With severe pain in back as well as pain all over and in all muscles, possibly from Lyme but also could be side effect maybe of quinidine? Ongoing for weeks CT A/P with no fractures seen in spine Has a h/o kyphoplasty in lumbar spine and tends to get lower back pain at this site if she doesn't walk outside every day. She has not been walking much due to extreme heat outside Continue lidocaine patch, pain control as above (5) Abnormal ECG: Plan: ECG from 10/30 and 11/06 with right bundle branch block and T wave inversions in anterior leads which are new from 08/2023 Checked echocardiogram-negative Stopped quinidine (6) Chronic diarrhea: Plan: As noted above (7) Hypertension: Plan: Continue carvedilol and with rising BPs, can increase back to home dose of 25 mg twice daily Continue to hold amlodipine, spironolactone-HCTZ (8) Electrolyte abnormality: Plan: Hypomagnesemia, Hypokalemia-replace lytes and start po magnesium at bedtime also fo rleg cramps Follow BMP, magnesium in the morning (9) Elevated LFTs: Plan: On 10/30 found to have elevation of AST at 193, ALT 379, alkaline phosphatase 321, bilirubin normal. Was thought at that time to be secondary potentially to recent anesthesia for colonoscopy? Liver ultrasound was normal on 10/30 except for periportal lymph nodes upper limits of normal in size LFTs are only minimally increased at this time and improving, CTA of abd/pelvis shows resolution of previous colitis and otherwise No abnormalities in the liver or gallbladder or bile ducts. EBV titer shows past infection Follow LFTs in AM Check acute hepatitis panel-pending (10) Hypothyroidism: Plan: TSH mildly elevated at 5.3 but has been having very poor p.o. intake Follow-up as an outpatient When not sick (11) Nocturnal leg cramps: Plan: start po magnesium and stop quinidine (12) Anemia: Plan: hgb baseline around 10.5 and she reports recent GI bleeding about 2 monts ago No bleeding seen here. Fe studies--> normal, B12 and folate normal, TSH as above ok Likely anemia of chronic disease Follow CBC Plan DVT prophylaxis-heparin SQ Disposition- dc held for downtrended sodium. Can progress to dc once >130 and stable Discussed care with at bedside Admission and Anticipated Discharge Date Admission Date: November 07, 2023 Subjective Lyudmila seen the bedside with her present. She reports that she is still achy all over intermittently but feels okay at time of visit. No fevers overnight. Has very poor appetite and would like to try a boost supplement. No other questions or concerns Physical Exam Physical Exam: General: A&Ox3. NAD. Cooperative. HEENT: Atraumatic, normocephalic. Pulm: Symmetrical chest rise. No increased work of breathing. No respiratory distress. Cardiac: RRR, -mrg. Radial pulses intact and symmetrical. Extremities: Warm and dry no edema. Results & Data Results & Data Vital Signs (Past 12 Hours) Vital Signs Temp Pulse Pulse Pulse Resp BP Pulse Ox 11/10/23 10:07 36.4 C L 78 17 160/80 H 96 11/10/23 08:02 83 11/10/23 07:42 36.4 C L 81 17 164/84 H 95 11/10/23 03:16 36.4 C L 84 22 157/82 H 95 O2 Del Method 11/10/23 10:07 Room Air 11/10/23 08:02 11/10/23 07:42 Room Air 11/10/23 03:16 Room Air PG Care Time/CCT Total # of Minutes Spent Total Time Spent with Patient: Total time spent is greater than 50% in coordination of care (as documented) at patient's floor/unit and/or counseling patient: Coding Level of Care Code 82708 SUB INP/OBS CARE 2/35MIN Diagnoses Acute hyponatremia E87.1 Lyme disease A69.20 Gastritis K29.70 Lower back pain M54.50 Abnormal ECG R94.31 Chronic diarrhea K52.9 Hypertension I10 Electrolyte abnormality E87.8 Elevated LFTs R79.89 Hypothyroidism E03.9 Nocturnal leg cramps G47.62 Anemia D64.9 Anemia type: unspecified type (12) Anemia Anemia type: unspecified type Qualified Code(s): D64.9 - Anemia, unspecified
[2023-11-11] MEDS: KETOROLAC TROMETHAMINE 15 MG/ML VIAL IV ONE (07:43)
[2023-11-11 07:56] LABS: BUN Creatinine Ratio 23.3 (10-20); Calcium 8.5 mg/dl (8.6-10.3); Creatinine Clr Calc Pharmacy 47.2 ml/min; Est GFR (African American) 89.5 ml/min; Est GFR (Non-African American) 77.2 ml/min; Potassium 3.8 mmol/L (3.5-5.1)
--- NOTE | 2023-11-11 08:13 | Hospitalist Progress Note ---
Date of Service November 11, 2023 Assessment & Plan (1) Acute hyponatremia: Plan: Na 113 on 11/06 --> Na 128 on 11/10 Multifactorial: suspect secondary to poor oral intake (GI discomfort due to doxycycline), increased fluid intake (secondary to heat), and spironolactone/HCT Z use [facility] labs on arrival serum osmolality 239, urine osmolality 204, urine sodium 22 Repeat [facility] labs ordered, pending now that HCTZ and spironolactone have been on hold for several days Spironolactone/HCTZ on hold Most recent downtrend in Na 130-->128; may be due to NSS x 2L given 1500 mL fluid restriction Hypertonic saline 3% NaCl IV 50mL bolus over 10min given BMP re-check signed out to overnight resident Goal to increase 24h serum sodium concentration by 46mEq/L; trend BMP q4h for overcorrection Continue sodium tablets BID If refractory, consider tolvaptan 15 mg once daily to start while patient is still hospitalized; patient would need to be off fluid restriction for 24-48h prior to starting to help avoid overcorrection Trend BMP (2) Lyme disease: Plan: Suspected as an outpatient although Western blot is not overtly positive for such 2 episodes of severe joint pains all over and myalgias prior to hospitalization Did not tolerate doxycycline due to GI discomfort Amoxicillin 500mg po tid to finish out 10 day course for Lyme Ehrlichiosis titer negative; anaplasmosis, and babesiosis PCR testing is pending but smears are negative Acetaminophen as needed for fever/pain Voltaren gel 2 g as needed for joint pain (3) Gastritis: Plan: Likely from po doxycycline Has had a lot of GI issues over the years-Had workup in 09/28/2020, with negative abdominal ultrasound, CT scan of abdomen and pelvis, and HIDA scan Negative workup on 06/06/[address] scan of abdomen and pelvis on 09/09/2023 suggested inflammatory infectious colitis Recent liver ultrasound on 10/31/2023 was normal when she had significantly elevated LFTs which are now improving Colonoscopy on 10/28/2023 was negative for colitis Protonix 40 mg p.o. daily Seems to be improving and able to eat better (4) Lower back pain: Plan: Chronic, but possibly exacerbated in the setting of Lyme; ?may be a side effect from quinidine History of kyphoplasty and lumbar spine CT A/P with no fractures seen in spine Lidocaine patch daily PT/OT evaluations appreciated Continue lidocaine patch, pain control (5) Abnormal ECG: Plan: ECG from 10/30 and 11/06 with right bundle branch block and T wave inversions in anterior leads which are new from 08/2023 Checked echocardiogram-negative Stopped quinidine Continuous telemetry monitoring (6) Hypertension: Plan: Continue carvedilol and with rising BPs, can increase back to home dose of 25 mg twice daily Continue to hold amlodipine, spironolactone-HCTZ (7) Electrolyte abnormality: Plan: Hypomagnesemia, Hypokalemia-replace lytes and start po magnesium at bedtime also fo rleg cramps Follow BMP, magnesium in the morning (8) Elevated LFTs: Plan: On 10/30 found to have elevation of AST at 193, ALT 379, alkaline phosphatase 321, bilirubin normal. Was thought at that time to be secondary potentially to recent anesthesia for colonoscopy? Liver ultrasound was normal on 10/30 except for periportal lymph nodes upper limits of normal in size LFTs are only minimally increased at this time and improving, CTA of abd/pelvis shows resolution of previous colitis and otherwise No abnormalities in the liver or gallbladder or bile ducts. EBV titer shows past infection Follow LFTs in AM Hepatitis panelnegative (9) Hypothyroidism: Plan: TSH mildly elevated at 5.3 but has been having very poor p.o. intake Follow-up as an outpatient When not sick (10) Nocturnal leg cramps: Plan: Continue p.o. magnesium Hold quinidine (11) Anemia: Plan: Hgb baseline around 10.5 and she reports recent GI bleeding about 2 monts ago No bleeding seen here. Fe studies--> normal, B12 and folate normal, TSH as above ok Likely anemia of chronic disease Follow CBC Plan Disposition: PCU; can assess for discharge when sodium >130 and stable 1500 mL fluid restriction DVT prophylaxis: heparin SQ Discussed care with at bedside Admission and Anticipated Discharge Date Admission Date: November 07, 2023 Supervising Physician Co-Signing Physician Notes Patient was seen and examined independently I discussed the case with NURYS HENSON I reviewed pertinent past medical social family history and also the plan of care and agree with the plan of care. Patient was seen independently she is seen with her she had her case once again described to her with regard to her acute on chronic Lyme disease and hyponatremia. Retesting her serology does reveal a low serum osmolality and a normal urine osmolality with elevated urine sodium level. Will continue fluid restriction and give hypertonic saline. She maintain treatment for her Lyme disease with amoxicillin. Patient is awake alert she is oriented x 3 although she is forgetful at times card exam is regular lungs are clear her volume status is euvolemic Any exceptions will be noted below Subjective Patient reports she is doing well today, and has no new medical complaints. Patient's (Mo) is at the bedside and provides additional history. The patient reports she initially presented for Lyme and GI discomfort secondary to doxycycline. She had been drinking lots of ice water due to the hot weather, and was not eating much (as the doxycycline was making her sick to her stomach). She believes this is what led to her hyponatremia. She has been doing well t krishan, and reports no problems when taking the off of oxacillin. No GI discomfort. She is unsure when her last bowel movement was. While she initially notes she had 3-4 "attacks" of generalized pain from her Lyme, that occurred Thursday/Thursday night prior to coming into the hospital, she reports no recurrence since starting on the doxycycline. Patient reports she has been eating and drinking well; much better than she was when she was on doxycycline. She has been ambulating well with the walker out of her room x 2 today, and reports no lower extremity weakness or falls. She does have chronic back pain, but reports that it is better on days when she walks, and that the lidocaine patch has been helping. ROS: Patient endorses intermittent night sweats, and lower back pain (chronic) Patient denies fever, chills, body aches, joint pain, rashes on her body, chest pain, SOB, abdominal pain, N/V/D, changes in urinary or bowel habits, or numbness or tingling in the arms or legs. Review of Systems Review of Systems: See HPI above Physical Exam Physical Exam: General: no acute distress; pleasant affect; nontoxic appearing; frail- appearing; cooperative; SpO2 98% on RA HEENT: normocephalic, atraumatic; no scleral icterus; PERRLA; moist mucus membrane; vision intact; hard of hearing (hearing aids in place) Neck: supple; no lymphadenopathy; trachea midline Skin: warm, dry without signs of tenting; no cyanosis; no rashes, bruising, lesions, or erythema noted on the extremities CV: chest wall NTP; RRR; S1/S2 normal; no murmurs/rubs/gallops; pulses intact and symmetric at radial, DP, and PT Lungs: no acute respiratory distress; symmetrical chest wall expansion; clear breath sounds across all lung burger w/o adventitious sounds; no wheezing ABD: Soft, NTP; BS present; no rebound/guarding; no distention MSK: no tics or fasciculations; no edema noted in the LEs b/l, nonerythematous Neuro: A&Ox3; normal mood and affect; fluent speech; no focal deficits; sensation grossly intact in the LEs b/l Results & Data Results & Data Vital Signs (Past 12 Hours) Vital Signs Temp Pulse Pulse Pulse Resp BP Pulse Ox 11/11/23 07:31 36.3 C L 71 17 132/79 97 11/11/23 02:39 36.5 C 80 16 135/72 96 11/10/23 22:38 80 11/10/23 22:30 36.5 C 75 20 138/81 95 O2 Del Method 11/11/23 07:31 Room Air 11/11/23 02:39 Room Air 11/10/23 22:38 11/10/23 22:30 Room Air Laboratory Results Abnormal lab results 11/11/23 11/11/23 Range/Units 07:05 10:13 Sodium 128 L (136-145) mmol/L Chloride 96 L (98-107) mmol/L BUN/Creatinine Ratio 23.3 H (10-20) Osmolality 274 L (280-300) mOsm/kg Calcium 8.5 L (8.6-10.3) mg/dl PG Care Time/CCT Total # of Minutes Spent Total Time Spent with Patient: Total time spent is greater than 50% in coordination of care (as documented) at patient's floor/unit and/or counseling patient: Coding [place] [address] SUB INP/OBS CARE 3/50MIN Patient Type Established Medical Decision Making Moderate Complexity Diagnoses Acute hyponatremia E87.1 Lyme disease A69.20 Gastritis K29.70 Lower back pain M54.50 Abnormal ECG R94.31 Hypertension I10 Electrolyte abnormality E87.8 Elevated LFTs R79.89 Hypothyroidism E03.9 Nocturnal leg cramps G47.62 Anemia D64.9 Anemia type: unspecified type (11) Anemia Anemia type: unspecified type Qualified Code(s): D64.9 - Anemia, unspecified
[2023-11-11] MEDS ORDERED: SODIUM CHLORIDE 3 % 50 ML IV ONE (10:00)
[2023-11-11 14:32] LABS: Babesia microti DNA Not Detected (Not Detected)
[2023-11-11] MEDS ORDERED: STAT IV/IM STA ×2 (17:01→21:50)
[2023-11-11] MEDS: SODIUM CHLORIDE 3 % 50 ML IV ONE ×2 (17:54→22:17)
[2023-11-11 21:09] LABS: BUN Creatinine Ratio 31.8 (10-20); Calcium 9.6 mg/dl (8.6-10.3); Creatinine Clr Calc Pharmacy 40.5 ml/min; Est GFR (African American) 74.5 ml/min; Est GFR (Non-African American) 64.3 ml/min
[2023-11-12 00:54] LABS: BUN Creatinine Ratio 32.5 (10-20); Calcium 9.1 mg/dl (8.6-10.3); Creatinine Clr Calc Pharmacy 44.8 ml/min; Est GFR (African American) 83.9 ml/min; Est GFR (Non-African American) 72.4 ml/min; Potassium 3.7 mmol/L (3.5-5.1)
--- NOTE | 2023-11-12 07:53 | Hospitalist Progress Note ---
Date of Service November 12, 2023 Assessment & Plan (1) Acute hyponatremia: Plan: Na 113 on 11/06 on arrival Na 131 on the morning of 11/11 After administration of hypertonic saline 3% NaCl IV 50 mL bolus yesterday on 11/10, patient's sodium dropped from 128-->125 Given patient's serum osmolality remains low, suspect some component of SIADH Will trial patient on urea 15 g p.o. BID starting today If this allows patient to maintain sodium levels above 130, will plan on d ischarge on urea 15 g BID, with clinical titration to increments of 15 g BID (max daily dose: 60 g daily) Continue 1500 mL fluid restriction Multifactorial: suspect secondary SIADH, poor oral intake (GI discomfort due to doxycycline), increased fluid intake (secondary to heat), and spironolactone/HCTZ use Continue to hold spironolactone/HCTZ Continue sodium tablets BID Trend BMP (2) SIADH (syndrome of inappropriate ADH production): Plan: Unclear etiology; ? May be secondary to Lyme Treatment (as above) (3) Lyme disease: Plan: 2 episodes of severe joint pains all over and myalgias prior to hospitalization Patient then endorses severe back pain overnight on 11/11; suspect acute on chronic back pain exacerbated by Lyme Did not tolerate doxycycline due to GI discomfort Amoxicillin 500mg po tid to finish out 10 day course for Lyme Ehrlichiosis titer negative; anaplasmosis and babesiosis negative Acetaminophen as needed for fever/pain Voltaren gel 2 g as needed for joint pain (4) Lower back pain: Plan: Chronic, but likely exacerbated in the setting of Lyme; ?may be a side effect from quinidine History of kyphoplasty and lumbar spine CT A/P with no fractures seen in spine Lidocaine patch daily PT/OT evaluations appreciated Continue lidocaine patch, pain control IV Dilaudid discontinued; patient reports severe confusion when taking Acetaminophen 1000 mg p.o. q8h as needed for pain Toradol 15 mg IV q6h as needed for breakthrough pain (5) Gastritis: Plan: Resolved; secondary to p.o. doxycycline Hx of GI issues 09/28/2020, with negative abdominal ultrasound, CT scan of abdomen and pelvis, and HIDA scan Negative workup on 06/06/[address] scan of abdomen and pelvis on 09/09/2023 suggested inflammatory infectious colitis Recent liver ultrasound on 10/31/2023 was normal when she had significantly elevated LFTs which are now improving Colonoscopy on 10/28/2023 was negative for colitis Protonix 40 mg p.o. daily Seems to be improving and able to tolerate oral intake (6) Abnormal ECG: Plan: ECG from 10/30 and 11/06 with right bundle branch block and T wave inversions in anterior leads which are new from 08/2023 Checked echocardiogram-negative Stopped quinidine Continuous telemetry monitoring (7) Hypertension: Plan: Continue carvedilol and with rising BPs, can increase back to home dose of 25 mg twice daily Hold amlodipine, spironolactone-HCTZ (8) Electrolyte abnormality: Plan: Hypomagnesemia, Hypokalemia-replace lytes and start po magnesium at bedtime also fo rleg cramps Follow BMP, magnesium in the morning (9) Elevated LFTs: Plan: On 10/30 found to have elevation of AST at 193, ALT 379, alkaline phosphatase 321, bilirubin normal. Was thought at that time to be secondary potentially to recent anesthesia for colonoscopy? Liver ultrasound was normal on 10/30 except for periportal lymph nodes upper li mits of normal in size LFTs are only minimally increased at this time and improving, CTA of abd/pelvis shows resolution of previous colitis and otherwise No abnormalities in the liver or gallbladder or bile ducts. EBV titer shows past infection Follow LFTs in AM Hepatitis panelnegative (10) Hypothyroidism: Plan: TSH mildly elevated at 5.3 but has been having very poor p.o. intake Free T4 level WNL Follow-up as an outpatient (11) Nocturnal leg cramps: Plan: Continue p.o. magnesium Hold quinidine (12) Anemia: Plan: Hgb baseline around 10.5 and she reports recent GI bleeding about 2 monts ago No bleeding seen here. Fe studies--> normal, B12 and folate normal, TSH as above ok Likely anemia of chronic disease Follow CBC Plan Discussed lab findings/sodium levels with patient and patient's (Mo) at bedside. They are amenable to trying urea for potential SIADH. Disposition: PCU status; trial of urea 15 g BID; if patient's sodium levels return to normal range, can discharge home on amoxicillin for Lyme Full code Regular diet (1500 mL fluid restriction) DVT prophylaxis: heparin SQ Admission and Anticipated Discharge Date Admission Date: November 07, 2023 Subjective Patient's most pressing concern today is her lower back pain and confusion. She reports that she developed severe lower back pain (which she rated 10/10) overnight. She was given IV Dilaudid, and reports that she has been feeling somewhat confused this morning, which she believes is secondary to the pain medication. The pain in her lower back is no longer present, and she reports that the lidocaine patch does help as well as walking multiple times a day. She has been ambulating with her walker throughout the halls; 5 loops yesterday, 1 L today; no falls. She denies any new stomach pain. That said, she has had poor oral intake due to nausea and loss of appetite. She still reports that she has not had a bowel movement, which she attributes to "not eating anything". ROS: Patient endorses intermittent lower back pain, confusion (which patient attributes to the Dilaudid), intermittent tension headache (which is not new for her), nausea, poor oral intake, and swelling in her lower extremities. Patient denies fever, chills, changes in vision, dizziness or lightheadedness with walking, chest pain, chest pressure, chest palpitations, SOB, cough, wheezing, vomiting, diarrhea, change in urinary habits, saddle anesthesia, or numbness and tingling in the lower extremities bilaterally. Review of Systems Review of Systems: See HPI above Physical Exam Physical Exam: General: no acute distress; mild confusion; lethargic; pleasant affect; nontoxic appearing; frail-appearing; cooperative; SpO2 98% on RA HEENT: normocephalic, atraumatic; no scleral icterus; PERRLA; moist mucus membrane; vision intact; hard of hearing (hearing aids in place) Neck: supple; trachea midline Skin: warm, dry without signs of tenting; no cyanosis; no rashes, bruising, lesions, or erythema noted on the extremities CV: chest wall NTP; RRR; S1/S2 normal; no murmurs/rubs/gallops; pulses intact and symmetric at radial, DP, and PT Lungs: no acute respiratory distress; symmetrical chest wall expansion; clear breath sounds across all lung burger w/o adventitious sounds; no wheezing ABD: Soft, NTP; BS present; no rebound/guarding; no distention Back: Upper and lower spine is NTP; negative CVA tenderness MSK: no tics or fasciculations; +1 pitting edema around the ankles bilaterally, nonerythematous; patient demonstrates ability to wiggle toes, plantarflex/dorsiflex bilaterally with 5/5 strength Neuro: A&Ox3; normal mood and affect; fluent speech; no focal deficits; sensation grossly intact in the LEs b/l Results & Data Results & Data Vital Signs (Past 12 Hours) Vital Signs Temp Pulse Pulse Resp BP Pulse Ox O2 Del Method 11/12/23 02:59 36.5 C 83 16 134/78 96 Room Air 11/11/23 23:00 71 11/11/23 22:27 36.3 C L 73 20 145/79 H 95 Room Air 11/11/23 20:00 Room Air Laboratory Results Abnormal lab results 11/11/23 11/12/23 11/12/23 Range/Units 20:30 00:16 07:50 WBC 3.77 L (4.8-10.8) K/ul RBC 3.31 L (4.20-5.40) M/uL Hgb 10.0 L (12.0-16.0) g/dl Hct 29.0 L (37.0-47.0) % Neut # (Auto) 1.22 L (1.40-6.50) K/uL Sodium 125 L 129 L 131 L (136-145) mmol/L Chloride 94 L 97 L (98-107) mmol/L BUN 27 H 25 H (6-23) mg/dl BUN/Creatinine Ratio 31.8 H 32.5 H 26.6 H (10-20) Glucose 100 H 106 H (70-99(Fasting)) mg/dl PG Care Time/CCT Total # of Minutes Spent Total Time Spent with Patient: Total time spent is greater than 50% in coordination of care (as documented) at patient's floor/unit and/or counseling patient: [place] [address] SUB INP/OBS CARE 2/35MIN Patient Type Established History Comprehensive Exam Comprehensive Medical Decision Making Moderate Complexity Diagnoses Acute hyponatremia E87.1 SIADH (syndrome of inappropriate ADH production) E22.2 Lyme disease A69.20 Lower back pain M54.50 Gastritis K29.70 Abnormal ECG R94.31 Hypertension I10 Electrolyte abnormality E87.8 Elevated LFTs R79.89 Hypothyroidism E03.9 Nocturnal leg cramps G47.62 Anemia D64.9 Anemia type: unspecified type (12) Anemia Anemia type: unspecified type Qualified Code(s): D64.9 - Anemia, unspecified
[2023-11-12 08:31] LABS: Mean Corpuscular Hemoglobin 30.2 pg (25.0-34.0); Mean Corpuscular Hgb Conc 34.5 g/dL (32.0-36.0); Mean Corpuscular Volume 87.6 fL (80.0-100.0); Mean Platelet Volume 9.8 fL (9.4-12.4); Platelet Count 377 K/uL (130-400); RDW Coefficient of Variation 13.1 % (11.5-14.5); Red Blood Count 3.31 M/uL (4.20-5.40); White Blood Count 3.77 K/ul (4.8-10.8)
[2023-11-12 08:49] LABS: BUN Creatinine Ratio 26.6 (10-20); Calcium 9.1 mg/dl (8.6-10.3); Creatinine Clr Calc Pharmacy 43.4 ml/min; Est GFR (African American) 81.4 ml/min; Est GFR (Non-African American) 70.2 ml/min
[2023-11-12 09:08] LABS: Basophils # (auto) 0.04 K/uL (0.00-0.20); Basophils % (auto) 1.1 %; Immature Granulocytes # (auto) 0.03 K/uL (0.01-0.20); Immature Granulocytes % (auto) 0.8 %; Lymphocytes # (auto) 2.03 K/uL (1.20-3.40); Lymphocytes % (auto) 53.8 %; Monocytes # (auto) 0.45 K/uL (0.11-0.59); Monocytes % (auto) 11.9 %; Neutrophils # (auto) 1.22 K/uL (1.40-6.50); Neutrophils % (auto) 32.4 %
[2023-11-12] MEDS: UREA (UREA-NA) 15 GM PACK PO SCH (10:07)
[2023-11-12 16:46] LABS: BUN Creatinine Ratio 55.9 (10-20); Creatinine Clr Calc Pharmacy 50.5 ml/min; Est GFR (African American) 95.1 ml/min
[2023-11-12] MEDS: hydrALAZINE HCL 20 MG/ML VIAL IV PRN (21:24)
[2023-11-13] MEDS: KETOROLAC TROMETHAMINE 15 MG/ML VIAL IV PRN (06:25)
[2023-11-13 06:27] LABS: BUN Creatinine Ratio 48.4 (10-20); Calcium 8.7 mg/dl (8.6-10.3); Creatinine Clr Calc Pharmacy 52.3 ml/min; Est GFR (Non-African American) 83.7 ml/min; Potassium 3.6 mmol/L (3.5-5.1)
--- NOTE | 2023-11-13 10:26 | Discharge Summary ---
Date of Service November 13, 2023 Admission HPI Per Admitting Provider The patient is a 83-year-old female with a past medical history including chronic colitis, anemia, gastritis, hyperlipidemia, impaired glucose metabolism, irritable bowel, hypothyroidism, hypertension, chronic diarrhea and glaucoma. She has had colitis for a number of years, with a thorough workup in the past, without diagnosis being reached. She had a CT scan done 09/09/2023 suggestive of inflammatory infectious colitis, with colonoscopy on 10/28/2023 that was normal. She had a HIDA scan performed on 12/20/2020 which was negative for gallbladder dysfunction, and has had celiac testing done in 2020 with negative testing. She presents today due to the addition of generalized myalgias and arthralgias, worsening oral intake, and increased intake of fluids Admission Exam Per Admitting Provider The patient is awake, alert and oriented 3, looks very fatigued, normocephalic and atraumatic, lying in bed and in no acute distress. HEENT--PERRL, EOMI, mucous membranes and oropharynx moderately dry. Neck--supple. No JVD. No bruits. Thyroid normal, trachea midline, no adenopathy. Heart--normal S1 and S2. No murmurs, rubs or gallops. Lungs--clear bilaterally, no respiratory distress, no accessory muscle use. Abdomen--normal bowel sounds and soft. Nontender. Nondistended Extremities--no cyanosis or clubbing. No edema. Dermatologic--skin is dry Neurologic--cranial nerves II through XII grossly intact. Rheumatologic--normal range of motion. Psychiatric--normal affect. Principal Diagnosis Acute hyponatremia, multifactorial possibly related to SIADH, poor oral intake (due to doxycycline), increased fluid intake (due to heat), spironolactone/hydrochlorothiazide Lyme's disease. Did not tolerate doxycycline. Being discharged on amoxicillin Gastritis due to doxycycline Low back pain, chronic. Exacerbated in the setting of Lyme Discharge Exam General: Awake, conversant Heart: S1, S2/regular rate and rhythm, no murmur rubs or gallops Lungs: Clear to auscultation bilaterally. Normal effort Abdomen: Soft/nontender/nondistended. No hepatosplenomegaly Extremities: No clubbing/cyanosis. No edema Behavior: Appropriate, cooperative Discharge Data Allergies Allergy/AdvReac Type Severity Reaction Status Date / Time oxycodone AdvReac Severe NAUSEA Verified 11/07/23 23:47 codeine AdvReac Unknown NAUSEATED Verified 11/07/23 23:47 morphine AdvReac Unknown GI SYMPTOMS Verified 11/07/23 23:47 Consultations 11/07/23 22:07 ED Decision to Admit Stat Ordered Studies 11/07/23 21:25 CT Abd and Pelvis [CT abd pelvis IV con only] Stat Hospital Course (1) Acute hyponatremia: Na 113 on 11/06 on arrival Na 131 today After administration of hypertonic saline 3% NaCl IV 50 mL bolus on 11/10, patient's sodium dropped from 128-->125 Given patient's serum osmolality remains low, suspect some component of SIADH Patient was started on urea 15 g p.o. BID starting 11/11. Since she had good response, will discharge her on 15 g twice daily. Continue 1500 mL fluid restriction Multifactorial: suspect secondary SIADH, poor oral intake (GI discomfort due to doxycycline), increased fluid intake (secondary to heat), and spironolactone/HCTZ use Continue to hold spironolactone/HCTZ Continue sodium tablets BID Ordered an outpatient BMP to be drawn on 11/15. She has an appointment made with her PCP on 11/16 (2) SIADH (syndrome of inappropriate ADH production): Unclear etiology; ? May be secondary to Lyme Treatment (as above) (3) Lyme disease: 2 episodes of severe joint pains all over and myalgias prior to hospitalization Patient then endorses severe back pain overnight on 11/11; suspect acute on chronic back pain exacerbated by Lyme Did not tolerate doxycycline due to GI discomfort Amoxicillin 500mg po tid to finish out 10 day course for Lyme Ehrlichiosis titer negative; anaplasmosis and babesiosis negative Acetaminophen as needed for fever/pain Voltaren gel 2 g as needed for joint pain (4) Lower back pain: Chronic, but likely exacerbated in the setting of Lyme; ?may be a side effect from quinidine History of kyphoplasty and lumbar spine CT A/P with no fractures seen in spine Lidocaine patch daily PT/OT evaluations appreciated The hospital bed is not helping her pain. She wishes to go home today. (5) Gastritis: Resolved; secondary to p.o. doxycycline Hx of GI issues 09/28/2020, with negative abdominal ultrasound, CT scan of abdomen and pelvis, and HIDA scan Negative workup on 06/06/[address] scan of abdomen and pelvis on 09/09/2023 suggested inflammatory infectious colitis Recent liver ultrasound on 10/31/2023 was normal when she had significantly elevated LFTs which are now improving Colonoscopy on 10/28/2023 was negative for colitis Protonix 40 mg p.o. daily Seems to be improving and able to tolerate oral intake (6) Abnormal ECG: ECG from 10/30 and 11/06 with right bundle branch block and T wave inversions in anterior leads which are new from 08/2023 Checked echocardiogram-negative Stopped quinidine Continuous telemetry monitoring (7) Hypertension: Continue carvedilol and with rising BPs, can increase back to home dose of 25 mg twice daily Hold amlodipine, spironolactone-HCTZ (8) Electrolyte abnormality: Hypomagnesemia, Hypokalemia-replace lytes and start po magnesium at bedtime also fo rleg cramps Follow BMP, magnesium in the morning (9) Elevated LFTs: On 10/30 found to have elevation of AST at 193, ALT 379, alkaline phosphatase 321, bilirubin normal. Was thought at that time to be secondary potentially to recent anesthesia for colonoscopy? Liver ultrasound was normal on 10/30 except for periportal lymph nodes upper limits of normal in size LFTs are only minimally increased at this time and improving, CTA of abd/pelvis shows resolution of previous colitis and otherwise No abnormalities in the liver or gallbladder or bile ducts. EBV titer shows past infection LFTs normalized Hepatitis panelnegative (10) Hypothyroidism: TSH mildly elevated at 5.3 but has been having very poor p.o. intake Free T4 level WNL Follow-up as an outpatient (11) Nocturnal leg cramps: Hold quinidine (12) Anemia: Hgb baseline around 10.5 and she reports recent GI bleeding about 2 monts ago No bleeding seen here. Fe studies--> normal, B12 and folate normal, TSH as above ok Likely anemia of chronic disease Plan Discharge to home Total Time Total Time Spent Total Time Spent (In Minutes): 35 Discharge Plan Discharge Items Patient Disposition: Home - Self-Care Reason For Visit: LYME,HYPONATREMIA Discharge Diagnosis: Acute hyponatremia, multifactorial possibly related to SIADH, poor oral intake (due to doxycycline), increased fluid intake (due to heat), spironolactone/hydrochlorothiazide Lyme's disease. Did not tolerate doxycycline. Being discharged on amoxicillin Gastritis due to doxycycline Low back pain, chronic. Exacerbated in the setting of Lyme Activity: Resume your previous activity Non-emergency contact: Primary Care Provider Call non-emergency contact if: you have any medication questions and your symptoms worsen Follow-up/Referrals: Nilay Estrella MD [Primary Care Provider] - 11/17/23 2:15 pm Diet: Heart Healthy Fluids: 1500ml (6 cups) Ambulatory Orders: Basic Metabolic Panel (Routine) Timeframe: 3 Days Location: Determined by Patient Ordered By: Jose J Drake Attending Provider Instructions: Advised to follow-up with PCP in 1 week Advised to do the blood work ordered (basic metabolic panel) on Wednesday 11/15, prior to your PCP appointment on 11/16. Pending Studies at Discharge: No Stand-Alone Forms: My [facility] Medications and DC Order Prescriptions: New amoxicillin 500 mg Capsule 500 mg PO TID 7 Days Qty: 21 0RF Ure-Na 15 gram Powder In Packet 15 g PO BID 7 Days Qty: 8 0RF pantoprazole 40 mg Tablet,Delayed Release (Dr/Ec) 40 mg PO QAM 30 Days Qty: 30 0RF sodium chloride 1,000 mg Tablet,Soluble 1,000 mg PO BID 7 Days Qty: 14 0RF Continued tramadol 50 mg tablet 50 mg PO TID PRN (Reason: pain) Qty: 30 0RF timolol maleate 0.5 % drops, once daily 1 drp OPB BID latanoprost 0.005 % drops 1 drp OPB HS garlic 1,000 mg capsule 1,000 mg PO QAM coenzyme Q10 [Co Q-10] 100 mg capsule 100 mg PO QAM cyanocobalamin (vitamin B-12) [Vitamin B-12] 1,000 mcg Tablet 1,000 mcg PO QAM dicyclomine 10 mg capsule 10 mg PO HS carvedilol 25 mg tablet 25 mg PO .HOLD Rx Instructions: must administer with a meal/food dicyclomine 10 mg capsule 20 mg PO QAM aspirin 81 mg Tablet,Delayed Release (Dr/Ec) 81 mg PO HS cholecalciferol (vitamin D3) [Vitamin D3] 125 mcg (5,000 unit) Tablet 125 mcg PO 2XWK omeprazole 40 mg capsule,delayed release(DR/EC) 40 mg PO QAM mometasone 0.1 % solution 1 applic UD PRN (Reason: ITCHY EARS) Rx Instructions: 5 topically as needed ;TOP PRN; 5 DROPS TO AFFECTED EAR(S) TWICE DAILY NEEDED FOR EAR ITCHING Discontinued doxycycline hyclate 100 mg tablet 100 mg PO BID Qty: 20 3RF quinidine sulfate 200 mg tablet 100 mg PO .HOLD Patient Comments: not sure why i take spironolacton-hydrochlorothiaz 25-25 mg tablet 1 tab PO .HOLD amlodipine 2.5 mg tablet 2.5 mg PO QAM Discharge Orders: Discharge Order (Routine); Ordered 11/13/23 Ordered By: Jose J Stephens Admission Data Admit Date/Time: 11/07/23 22:55 Attending Provider: Jose J Stephens Admit Provider: Eriberto Forde Primary Care Provider: Nilay Estrella Other Providers: Eriberto Forde Other Interventions: Discharge Summary Assessment (RN) Last Done: 11/13/23 10:34 Coding Level of Care Code 26956 INP/OBS DISCH >30 MIN Diagnoses Acute hyponatremia E87.1 SIADH (syndrome of inappropriate ADH production) E22.2 Lyme disease A69.20 Lower back pain M54.50 Gastritis K29.70 Abnormal ECG R94.31 Hypertension I10 Electrolyte abnormality E87.8 Elevated LFTs R79.89 Hypothyroidism E03.9 Nocturnal leg cramps G47.62 Anemia D64.9 Anemia type: unspecified type
== END 2023-11-13 11:28 | disposition home or self-care (01) | DRG 644 ==
LOC: ED 20:19 → EDINP 22:55 → SUATTDRO 22:55 → 2S 11-08 14:51